=== PATIENT | female | born 1995 | race Caucasian/White ===

== ENCOUNTER 2017-01-01 10:21 | Emergency (ER) | payer OTHER ==
[2017-01-01 11:33] LABS: Appearance,Urine Clear (Clear); Bacteria,Urine Rare /hpf; Bilirubin,Urine Negative (Negative); Glucose,Urine (UA) Negative (Negative); Ketones,Urine Negative (Negative); Leukocyte Esterase,Urine Negative (Negative); Mucus,Urine Rare /hpf; Nitrite,Urine Negative (Negative); PH, Urine 5.5 (5.0-8.0); Particle Count 4664; Protein,Urine Trace (Negative); RBC,Urine 1 /hpf (0-5); Specific Gravity,Urine 1.019 (1.001-1.035); Squamous Epithelial Cell,Urine 2 /hpf (0-4); UA Billing (MACRO vs. MICRO) MICRO; Urobilinogen,Urine <2.0 mg/dL (<2.0); WBC,Urine 4 /hpf (0-5)
--- NOTE | 2017-01-01 11:57 | ED ---
Female Urogenital HPI - General Chief complaint: Vaginal Bleeding Stated complaint: bleeding, Time Seen by Provider: 01/01/17 10:39 Source: patient, RN notes reviewed Mode of arrival: ambulatory Limitations: no limitations - History of Present Illness Initial comments: Patient is a 21-year-old female presents emergency room for evaluation of vaginal bleeding. Patient states she is about 5 weeks . Patient states last menstrual cycle was November 30. Patient states that the test about a week ago and was positive. Patient states she has yet followed up with her [employer] regarding this . Patient states she has to previous full- term and one miscarriage. Patient states she began with light bleeding and small clots this morning. Patient denies any abdominal pain or cramping. Patient states the bleeding increases she called her [employer]. Patient states she was advised to come to the emergency room. Patient denies headache or dizziness. Patient denies chest pain shortness of breath. Patient denies nausea or vomiting. Patient denies pain or burning during urination, trouble urinating or blood in urine. Patient denies history of STDs. Patient denies any bowel vaginal discharge or vaginal discomfort. Last Menstrual Period: 11/30/16 - Related Data Home Medications Medication Instructions Recorded Confirmed No Known Home Medications [No 05/30/16 01/01/17 Known Home Medications] Allergies Allergy/AdvReac Type Severity Reaction Status Date / Time No Known Allergies Allergy Verified 01/01/17 11:04 Review of Systems ROS Statement: Those systems with pertinent positive or pertinent negative responses have been documented in the HPI. ROS Other: All systems not noted in ROS Statement are negative. Past Medical History Past Medical History: No Reported History Additional Past Medical History / Comment(s): Herpes History of Any Multi-Drug Resistant Organisms: MRSA Date of last positivie culture/infection: 11/14/15 MDRO Source:: groin Past Surgical History: No Surgical Hx Reported Past Anesthesia/Blood Transfusion Reactions: No Reported Reaction Past Psychological History: Anxiety, Depression Smoking Status: Current every day smoker Past Alcohol Use History: None Reported Past Drug Use History: Marijuana - Past Family History Father Family Medical History: No Reported History General Exam - General Exam Comments Initial Comments: Sitting in exam room, no acute distress. Limitations: no limitations General appearance: alert, in no apparent distress Head exam: Present: atraumatic, normocephalic, normal inspection Eye exam: Present: normal appearance ENT exam: Present: normal exam Neck exam: Present: normal inspection Respiratory exam: Present: normal lung sounds bilaterally. Absent: respiratory distress Cardiovascular Exam: Present: regular rate, normal rhythm, normal heart sounds GI/Abdominal exam: Present: soft, normal bowel sounds. Absent: distended, tenderness, guarding, rebound, rigid External exam: Present: normal external exam Speculum exam: Present: vaginal bleeding By manual exam: Present: normal by manual exam Extremities exam: Present: normal inspection Back exam: Present: normal inspection Neurological exam: Present: alert, oriented X3, CN II-XII intact, normal gait Psychiatric exam: Present: normal affect, normal mood Skin exam: Present: warm, dry, intact, normal color. Absent: rash Course Vital Signs 01/01/17 01/01/17 10:23 13:50 Temperature 97.8 F 98.7 F Pulse Rate 74 53 L Respiratory 16 15 Rate Blood Pressure 112/66 108/55 O2 Sat by Pulse 100 98 Oximetry Medical Decision Making - Medical Decision Making Patient is a 21 year old female presents to emergency room for evaluation of vaginal bleeding. ultrasound showed no gestational evidence at this time and short-term follow-up with serial beta hCGs recommended. quantitative serum was only 15.1. Blood type O positive. Patient will be sent home with hCG follow-up in 48 hours. Patient states she understands everything that was discussed with her. Return parameters discussed. Case discussed with Dr. Mcnamara. - Lab Data Lab Results 01/01/17 01/01/17 01/01/17 Range/Units 11:10 11:17 11:17 HCG, Quant 15.1 mIU/mL Urine Color Yellow Urine Appearance Clear (Clear) Urine pH 5.5 (5.0-8.0) Ur Specific [place] 1.019 (1.001-1.035) Urine Protein Trace H (Negative) Urine Glucose (UA) Negative (Negative) Urine Ketones Negative (Negative) Urine Blood Moderate H (Negative) Urine Nitrite Negative (Negative) Urine Bilirubin Negative (Negative) Urine Urobilinogen <2.0 (<2.0) mg/dL Ur Leukocyte Esterase Negative (Negative) Urine RBC 1 (0-5) /hpf Urine WBC 4 (0-5) /hpf Ur Squamous Epith Cells 2 (0-4) /hpf Urine Bacteria Rare H (None) /hpf Urine Mucus Rare H (None) /hpf Blood Type O Positive Blood Type Recheck No - Radiology Data Radiology results: report reviewed, image reviewed Disposition Clinical Impression: Threatened Disposition: HOME SELF-CARE Condition: Good Instructions: Threatened Miscarriage (ED) Additional Instructions: Refrain from heavy lifting or sexual intercourse for the next 24-48 hours. Please follow-up with [employer]. Take Tylenol as needed for discomfort. If any new symptom arises or symptoms worsen, return to ER as soon as possible. Referrals: Milagro Goldman MD [Primary Care Provider] - 1-2 days Haris Cox DO [Doctor of Osteopathic Medicine] - 1-2 days Time of Disposition: 13:45
--- NOTE | 2017-01-01 13:05 | US ---
EXAMINATION TYPE: US OB <= 14 wk fetus DATE OF EXAM: 01/01/2017 COMPARISON: NONE CLINICAL HISTORY: Pain. Vaginal bleeding EXAM PERFORMED: Transabdominal (TA) EXAM MEASUREMENTS: GESTATIONAL AGE / DATING Physician Established: not established Dates by LMP: (4 weeks/4 days) EDC: 09/06/17 Dates by First Scan: no prior Dates by Current Scan for: no evidence of IUP at this time MATERNAL ANATOMY Uterus: 7.9 x 5.4 x 5.9cm Right Ovary: 2.9 x 1.3 x 2.1cm Left Ovary: 2.8 x 1.5 x 2.1cm Post CDS / Adnexa: wnl Presence of free fluid: no GESTATION / SURVEY IUP: No IUP seen at this time Date of LMP: 11/30/16 Beta HcG (if available): 15.1 No evidence of IUP at this time IMPRESSION: WE HAVE NOT IDENTIFIED INTRAUTERINE OR EXTRAUTERINE GESTATION. SHORT-TERM FOLLOW-UP +/- 0 BETA HCGS W [facility] BE SUGGESTED.
[2017-01-01 13:52] VITALS: BP 108/55; PULSE 53; RESP 15; TEMP 98.7
== END 2017-01-01 14:00 | disposition home or self-care (01) ==
LOC: EC 10:21
DX: O20.0 Threatened abortion (principal); O99.331 Smoking (tobacco) complicating pregnancy, first trimester; F17.200 Nicotine dependence, unspecified, uncomplicated; Z3A.01 Less than 8 weeks gestation of pregnancy
CPT/HCPCS: 36415; 76801; 81001; 84702; 86900; 86901; 99284

== ENCOUNTER → 2017-01-04 | Outpatient (CLI) | payer OTHER | END | disposition home or self-care (01) | LOC: LABWHC1 13:08 | PROVIDERS: ATTEND Physician Assistant | DX: O20.0 Threatened abortion (principal); Z3A.00 Weeks of gestation of pregnancy not specified | CPT/HCPCS: 36415; 84702 ==

== ENCOUNTER 2017-02-21 13:10 | Emergency (ER) | payer OTHER ==
[2017-02-21 13:54] VITALS: RESP 18
[2017-02-21] MEDS ORDERED: ACETAMINOPHEN TAB 325 MG TAB PO STA (14:25)
[2017-02-21] MEDS ORDERED: METOCLOPRAMIDE 5 MG/ML 2 ML VIAL IVP STA (14:25)
[2017-02-21] MEDS ORDERED: SODIUM CHLORIDE 0.9% 1,000 ML IV ONE (14:25)
[2017-02-21] MEDS ORDERED: diphenhydrAMINE 50 MG/ML 1 ML VIAL IVP STA (14:25)
--- NOTE | 2017-02-21 15:02 | ED ---
Headache HPI - General Chief Complaint: Headache Stated Complaint: Migraine,numbness in finger tips/mouth Mode of arrival: wheelchair Limitations: no limitations - History of Present Illness Initial Comments: 21 yo female at 8 wks gestation with pmh of migraines presenting for evaluation of headache. She states her headache started 2 hours ago and is consistent with previous migraines starting with spotted vision, nausea and vomiting, left-sided headache without radiation, and some mildly slurred speech. She also states some decreased sensation to her left arm and lips although this is also consistent with previous presentations. She took some Tylenol prior to coming in without any relief. There is associated light sensitivity. She states she has a neuro appt on 02/28 with unknown neurologist. Denies any change in PATE from previous migraines. Previous visits were treated successfully with toradol, reglan, and benadryl. - Related Data Home Medications Medication Instructions Recorded Confirmed Acetaminophen Tab [Tylenol Tab] 1,000 mg PO Q6HR PRN 02/21/17 02/21/17 Previous Rx's Medication Instructions Recorded Nitrofurantoin Monohyd/M-Cryst 100 mg PO Q12HR #14 cap 02/21/17 [Macrobid] Allergies Allergy/AdvReac Type Severity Reaction Status Date / Time No Known Allergies Allergy Verified 02/21/17 14:00 Review of Systems ROS Statement: Those systems with pertinent positive or pertinent negative responses have been documented in the HPI. ROS Other: All systems not noted in ROS Statement are negative. Constitutional: Denies: fever, chills Eyes: Reports: vision change. Denies: eye pain ENT: Denies: ear pain, throat pain Respiratory: Denies: cough, dyspnea Cardiovascular: Denies: chest pain, palpitations Endocrine: Denies: fatigue, polydipsia Gastrointestinal: Reports: nausea, vomiting. Denies: abdominal pain Genitourinary: Denies: urgency, dysuria Musculoskeletal: Denies: back pain, arthralgia Skin: Denies: rash, lesions Neurological: Reports: headache, paresthesias. Denies: weakness Psychiatric: Denies: anxiety, depression Hematological/Lymphatic: Denies: easy bleeding, easy bruising Past Medical History Past Medical History: No Reported History Additional Past Medical History / Comment(s): Herpes History of Any Multi-Drug Resistant Organisms: MRSA Date of last positivie culture/infection: 11/14/15 MDRO Source:: groin Past Surgical History: No Surgical Hx Reported Past Anesthesia/Blood Transfusion Reactions: No Reported Reaction Past Psychological History: Anxiety, Depression Smoking Status: Current every day smoker Past Alcohol Use History: None Reported Past Drug Use History: Marijuana - Past Family History Father Family Medical History: No Reported History General Exam Limitations: no limitations General appearance: alert, in no apparent distress Head exam: Present: atraumatic, normocephalic, normal inspection Eye exam: Present: normal appearance, PERRL, EOMI. Absent: scleral icterus, conjunctival injection, periorbital swelling ENT exam: Present: normal exam, mucous membranes moist Neck exam: Present: normal inspection. Absent: tenderness, meningismus, lymphadenopathy Respiratory exam: Present: normal lung sounds bilaterally. Absent: respiratory distress, wheezes, rales, rhonchi, stridor Cardiovascular Exam: Present: regular rate, normal rhythm, normal heart sounds. Absent: systolic murmur, diastolic murmur, rubs, gallop, clicks GI/Abdominal exam: Present: soft, normal bowel sounds. Absent: distended, tenderness, guarding, rebound, rigid Rectal exam: Present: deferred Extremities exam: Present: normal inspection, full ROM, normal capillary refill. Absent: tenderness, pedal edema, joint swelling, calf tenderness Back exam: Present: normal inspection Neurological exam: Present: alert, oriented X3, CN II-XII intact Psychiatric exam: Present: normal affect, normal mood Skin exam: Present: warm, dry, intact, normal color. Absent: rash Course Vital Signs 02/21/17 02/21/17 13:48 15:27 Temperature 97.8 F 99.0 F Pulse Rate 77 105 H Respiratory 18 18 Rate Blood Pressure 109/61 118/59 O2 Sat by Pulse 100 99 Oximetry Medical Decision Making - Lab Data Lab Results 02/21/17 02/21/17 Range/Units 14:50 14:50 Urine Color Yellow Urine Appearance Clear (Clear) Urine pH 6.5 (5.0-8.0) Ur Specific [place] 1.009 (1.001-1.035) Urine Protein Negative (Negative) Urine Glucose (UA) Negative (Negative) Urine Ketones Trace H (Negative) Urine Blood Negative (Negative) Urine Nitrite Negative (Negative) Urine Bilirubin Negative (Negative) Urine Urobilinogen <2.0 (<2.0) mg/dL Ur Leukocyte Esterase Small H (Negative) Urine WBC 11 H (0-5) /hpf Ur Squamous Epith Cells 3 (0-4) /hpf Amorphous Sediment Rare H (None) /hpf Urine Bacteria Rare H (None) /hpf Urine Mucus Moderate H (None) /hpf Urine HCG, Qual Detected (Not Detectd) Disposition Clinical Impression: Headache Disposition: HOME SELF-CARE Condition: Stable Instructions: Acute Headache (ED) Additional Instructions: Please use medication as discussed. Please follow up with family doctor if symptoms have not improved over the next two days. Please return to the emergency room if your symptoms increase or worsen or for any other concerns. Prescriptions: Nitrofurantoin Monohyd/M-Cryst [Macrobid] 100 mg PO Q12HR #14 cap Referrals: Milagro Goldman MD [Primary Care Provider] - 1-2 days Time of Disposition: 16:06
[2017-02-21 15:11] LABS: Amorphous Sediment,Urine Rare /hpf; Appearance,Urine Clear (Clear); Bacteria,Urine Rare /hpf; Bilirubin,Urine Negative (Negative); Glucose,Urine (UA) Negative (Negative); Ketones,Urine Trace (Negative); Leukocyte Esterase,Urine Small (Negative); Mucus,Urine Moderate /hpf; Nitrite,Urine Negative (Negative); PH, Urine 6.5 (5.0-8.0); Particle Count 3694; Protein,Urine Negative (Negative); Specific Gravity,Urine 1.009 (1.001-1.035); Squamous Epithelial Cell,Urine 3 /hpf (0-4); UA Billing (MACRO vs. MICRO) MICRO; Urobilinogen,Urine <2.0 mg/dL (<2.0); WBC,Urine 11 /hpf (0-5)
[2017-02-21 16:21] VITALS: BP 99/51; PULSE 88; TEMP 98.4
== END 2017-02-21 16:20 | disposition home or self-care (01) ==
LOC: EC 13:10
DX: O99.89 Other specified diseases and conditions complicating pregnancy, childbirth and the puerperium (principal); R51 Headache; H57.8 Other specified disorders of eye and adnexa; R47.81 Slurred speech; O21.9 Vomiting of pregnancy, unspecified; O99.331 Smoking (tobacco) complicating pregnancy, first trimester; F17.200 Nicotine dependence, unspecified, uncomplicated; Z3A.08 8 weeks gestation of pregnancy
CPT/HCPCS: 81001; 81025; 99283; 96374; 96375; 96361 ×2; J1200; J2765

== ENCOUNTER 2017-03-14 16:40 | Emergency (ER) | payer OTHER ==
[2017-03-14] MEDS ORDERED: ACETAMINOPHEN TAB 500 MG TAB PO STA (16:56)
[2017-03-14] MEDS ORDERED: SODIUM CHLORIDE 0.9% 1,000 ML IV ONE (16:56)
[2017-03-14] MEDS ORDERED: ONDANSETRON 4 MG/2 ML VIAL IVP STA (16:56)
--- NOTE | 2017-03-14 16:59 | ED ---
General Adult HPI - General Chief complaint: Fever Stated complaint: 10 weeks /Vomiting/Fever Time Seen by Provider: 03/14/17 16:40 Source: patient, RN notes reviewed Mode of arrival: ambulatory Limitations: no limitations - History of Present Illness Initial comments: This is a 21-year-old female who presents to the emergency department with a past medical history significant for being and she states about 10 weeks. Patient comes in today because she's had a fever last couple of days and she's also had a cough. Patient denies any sputum production. Patient denies any shortness of breath or difficulty breathing. Patient states she's also had quite a bit of vomiting as well. Patient denies any abdominal pain patient denies any diarrhea. Patient states she has no dysuria hematuria urinary frequency. Patient denies any skin rashes lesions or any areas of erythema. Patient denies headache patient denies numbness weakness. Patient states she has not been able eat or drink anything over the last couple of days because of her vomiting. Patient denies any pelvic cramping or vaginal bleeding. - Related Data Home Medications Medication Instructions Recorded Confirmed Hun-Ejtt-Toxuh Acid 1 cap PO DAILY 03/14/17 03/14/17 [-U Capsule (formulary)] Previous Rx's Medication Instructions Recorded Azithromycin [Zithromax Tri-Angel] 500 mg PO DAILY #3 tab 03/14/17 Ondansetron [Zofran] 4 mg PO Q6H PRN #10 tab 03/14/17 Allergies Allergy/AdvReac Type Severity Reaction Status Date / Time No Known Allergies Allergy Verified 03/14/17 16:51 Review of Systems ROS Statement: Those systems with pertinent positive or pertinent negative responses have been documented in the HPI. ROS Other: All systems not noted in ROS Statement are negative. Past Medical History Past Medical History: No Reported History Additional Past Medical History / Comment(s): Herpes History of Any Multi-Drug Resistant Organisms: MRSA Date of last positivie culture/infection: 11/14/15 MDRO Source:: groin Past Surgical History: No Surgical Hx Reported Past Anesthesia/Blood Transfusion Reactions: No Reported Reaction Past Psychological History: Anxiety, Depression Smoking Status: Current every day smoker Past Alcohol Use History: None Reported Past Drug Use History: Marijuana - Past Family History Father Family Medical History: No Reported History General Exam - General Exam Comments Initial Comments: GENERAL: Patient is well-developed and well-nourished. Patient is nontoxic and well- hydrated and is in mild distress. ENT: Neck is soft and supple. No significant lymphadenopathy is noted. Oropharynx is clear. Moist mucous membranes. Neck has full range of motion without eliciting any pain. EYES: The sclera were anicteric and conjunctiva were pink and moist. Extraocular movements were intact and pupils were equal round and reactive to light. Eyelids were unremarkable. PULMONARY: Unlabored respirations. Good breath sounds bilaterally. No audible rales rhonchi or wheezing was noted. CARDIOVASCULAR: There is a regular rate and rhythm without any murmurs gallops or rubs. ABDOMEN: Soft and nontender with normal bowel sounds. No palpable organomegaly was noted. There is no palpable pulsatile mass. SKIN: Skin is clear with no lesions or rashes and otherwise unremarkable. NEUROLOGIC: Patient is alert and oriented x3. Cranial nerves II through XII are grossly intact. Motor and sensory are also intact. Normal speech, volume and content. Symmetrical smile. MUSCULOSKELETAL: Normal extremities with adequate strength and full range of motion. LYMPHATICS: No significant lymphadenopathy is noted PSYCHIATRIC: Normal psychiatric evaluation. Limitations: no limitations Course Vital Signs 03/14/17 03/14/17 16:41 18:31 Temperature 101.0 F H 99.7 F H Pulse Rate 94 Respiratory 20 Rate Blood Pressure 111/67 O2 Sat by Pulse 99 Oximetry Medical Decision Making - Medical Decision Making I went back in and reevaluated the patient and the patient stated she felt considerably better. I gave the patient a gram of Rocephin emergency department for bronchitis. I will send the patient home with Zithromax. I also sent the patient home with Zofran. - Lab Data Result diagrams: 03/14/17 17:30 03/14/17 17:30 Lab Results 03/14/17 03/14/17 03/14/17 Range/Units 17:30 17:30 17:30 WBC 4.8 (3.8-10.6) k/uL RBC 4.59 (3.80-5.40) m/uL Hgb 13.9 (11.4-16.0) gm/dL Hct 38.5 (34.0-46.0) % MCV 83.9 (80.0-100.0) fL MCH 30.2 (25.0-35.0) pg MCHC 36.0 (31.0-37.0) g/dL RDW 13.9 (11.5-15.5) % Plt Count 137 L (150-450) k/uL Neutrophils % 75 % Lymphocytes % 15 % Monocytes % 7 % Eosinophils % 0 % Basophils % 0 % Neutrophils # 3.6 (1.3-7.7) k/uL Lymphocytes # 0.7 L (1.0-4.8) k/uL Monocytes # 0.3 (0-1.0) k/uL Eosinophils # 0.0 (0-0.7) k/uL Basophils # 0.0 (0-0.2) k/uL Sodium 137 (137-145) mmol/L Potassium 3.2 L (3.5-5.1) mmol/L Chloride 100 (98-107) mmol/L Carbon Dioxide 24 (22-30) mmol/L Anion Gap 13 mmol/L BUN 7 (7-17) mg/dL Creatinine 0.40 L (0.52-1.04) mg/dL Est GFR (MDRD) Af Amer >60 (>60 ml/min/1.73 sqM) Est GFR (MDRD) Non-Af >60 (>60 ml/min/1.73 sqM) Glucose 86 (74-99) mg/dL Plasma Lactic Acid Дмитрий (0.7-2.0) mmol/L Calcium 8.8 (8.4-10.2) mg/dL Total Bilirubin 0.2 (0.2-1.3) mg/dL AST 31 (14-36) U/L ALT 33 (9-52) U/L Alkaline Phosphatase 71 (38-126) U/L Total Protein 6.7 (6.3-8.2) g/dL Albumin 4.1 (3.5-5.0) g/dL Urine Color Dark Yellow Urine Appearance Cloudy H (Clear) Urine pH 6.0 (5.0-8.0) Ur Specific [place] 1.023 (1.001-1.035) Urine Protein Trace H (Negative) Urine Glucose (UA) Negative (Negative) Urine Ketones 3+ H (Negative) Urine Blood Negative (Negative) Urine Nitrite Negative (Negative) Urine Bilirubin Negative (Negative) Urine Urobilinogen 2.0 (<2.0) mg/dL Ur Leukocyte Esterase Moderate H (Negative) Urine RBC 2 (0-5) /hpf Urine WBC 54 H (0-5) /hpf Ur Squamous Epith Cells 25 H (0-4) /hpf Amorphous Sediment Occasional H (None) /hpf Hyaline Casts 4 H (0-2) /lpf Urine Mucus Moderate H (None) /hpf 03/14/17 Range/Units 17:30 WBC (3.8-10.6) k/uL RBC (3.80-5.40) m/uL Hgb (11.4-16.0) gm/dL Hct (34.0-46.0) % MCV (80.0-100.0) fL MCH (25.0-35.0) pg MCHC (31.0-37.0) g/dL RDW (11.5-15.5) % Plt Count (150-450) k/uL Neutrophils % % Lymphocytes % % Monocytes % % Eosinophils % % Basophils % % Neutrophils # (1.3-7.7) k/uL Lymphocytes # (1.0-4.8) k/uL Monocytes # (0-1.0) k/uL Eosinophils # (0-0.7) k/uL Basophils # (0-0.2) k/uL Sodium (137-145) mmol/L Potassium (3.5-5.1) mmol/L Chloride (98-107) mmol/L Carbon Dioxide (22-30) mmol/L Anion Gap mmol/L BUN (7-17) mg/dL Creatinine (0.52-1.04) mg/dL Est GFR (MDRD) Af Amer (>60 ml/min/1.73 sqM) Est GFR (MDRD) Non-Af (>60 ml/min/1.73 sqM) Glucose (74-99) mg/dL Plasma Lactic Acid Дмитрий 0.7 (0.7-2.0) mmol/L Calcium (8.4-10.2) mg/dL Total Bilirubin (0.2-1.3) mg/dL AST (14-36) U/L ALT (9-52) U/L Alkaline Phosphatase (38-126) U/L Total Protein (6.3-8.2) g/dL Albumin (3.5-5.0) g/dL Urine Color Urine Appearance (Clear) Urine pH (5.0-8.0) Ur Specific [place] (1.001-1.035) Urine Protein (Negative) Urine Glucose (UA) (Negative) Urine Ketones (Negative) Urine Blood (Negative) Urine Nitrite (Negative) Urine Bilirubin (Negative) Urine Urobilinogen (<2.0) mg/dL Ur Leukocyte Esterase (Negative) Urine RBC (0-5) /hpf Urine WBC (0-5) /hpf Ur Squamous Epith Cells (0-4) /hpf Amorphous Sediment (None) /hpf Hyaline Casts (0-2) /lpf Urine Mucus (None) /hpf Disposition Clinical Impression: Bronchitis, acute, Acute vomiting Disposition: HOME SELF-CARE Condition: Good Instructions: Acute Bronchitis (ED) Prescriptions: Azithromycin [Zithromax Tri-Angel] 500 mg PO DAILY #3 tab Ondansetron [Zofran] 4 mg PO Q6H PRN #10 tab PRN Reason: Nausea And Vomiting Referrals: Milagro Goldman MD [Primary Care Provider] - 1-2 days Time of Disposition: 18:58
[2017-03-14 17:49] LABS: Basophils % (A) 0 %; CH 29.1; CHCM 34.8; Eosinophils % (A) 0 %; HCT 38.5 % (34.0-46.0); HDW 2.49; HGB 13.9 gm/dL (11.4-16.0); Luc # (Auto) 0.12; Luc % (Auto) 2; Lymphocytes # (A) 0.7 k/uL (1.0-4.8); Lymphocytes % (A) 15 %; MCH 30.2 pg (25.0-35.0); MCV 83.9 fL (80.0-100.0); Mean Platelet Volume 9.2; Monocytes # (A) 0.3 k/uL (0-1.0); Monocytes % (A) 7 %; Neutrophils # (A) 3.6 k/uL (1.3-7.7); Neutrophils % (A) 75 %; RBC 4.59 m/uL (3.80-5.40); RDW 13.9 % (11.5-15.5); WBC 4.8 k/uL (3.8-10.6); WBC (Perox) 4.58
[2017-03-14 17:58] LABS: Amorphous Sediment,Urine Occasional /hpf; Appearance,Urine Cloudy (Clear); Bilirubin,Urine Negative (Negative); Glucose,Urine (UA) Negative (Negative); Ketones,Urine 3+ (Negative); Leukocyte Esterase,Urine Moderate (Negative); Mucus,Urine Moderate /hpf; Nitrite,Urine Negative (Negative); Particle Count 12292; Protein,Urine Trace (Negative); RBC,Urine 2 /hpf (0-5); Specific Gravity,Urine 1.023 (1.001-1.035); Squamous Epithelial Cell,Urine 25 /hpf (0-4); UA Billing (MACRO vs. MICRO) MICRO; WBC,Urine 54 /hpf (0-5)
[2017-03-14 18:10] LABS: ALT 33 U/L (9-52); AST 31 U/L (14-36); Alkaline Phosphatase 71 U/L (38-126); Anion Gap 13 mmol/L; Blood Urea Nitrogen 7 mg/dL (7-17); Calcium 8.8 mg/dL (8.4-10.2); Carbon Dioxide 24 mmol/L (22-30); Chloride 100 mmol/L (98-107); Glucose 86 mg/dL (74-99); Non-African American GFR(MDRD) >60 (>60 ml/min/1.73 sqM); Potassium 3.2 mmol/L (3.5-5.1); Sodium 137 mmol/L (137-145); Total Bilirubin 0.2 mg/dL (0.2-1.3); Total Protein 6.7 g/dL (6.3-8.2)
[2017-03-14 18:31] VITALS: TEMP 99.7
[2017-03-14 19:39] VITALS: BP 106/52; PULSE 88; RESP 16
== END 2017-03-14 19:40 | disposition home or self-care (01) ==
LOC: EC 16:40
DX: O99.511 Diseases of the respiratory system complicating pregnancy, first trimester (principal); J20.9 Acute bronchitis, unspecified; O21.9 Vomiting of pregnancy, unspecified; O99.331 Smoking (tobacco) complicating pregnancy, first trimester; F17.200 Nicotine dependence, unspecified, uncomplicated; Z79.899 Other long term (current) drug therapy; Z3A.10 10 weeks gestation of pregnancy
CPT/HCPCS: 36415; 80053; 83605; 85025; 81001; 99283; 96365; 96375; 96361; J2405; J0696

== ENCOUNTER 2017-03-17 09:47 | Inpatient (IN) | payer OTHER ==
[2017-03-17] MEDS ORDERED: SODIUM CHLORIDE 0.9% 1,000 ML IV STA ×2 (10:10)
[2017-03-17] MEDS ORDERED: ACETAMINOPHEN IV (For NPO) 1,000 MG in SALINE 100 100ML.BAG IVPB STA (10:10)
[2017-03-17 10:39] LABS: Basophils % (A) 0 %; CH 29.1; CHCM 35.6; Eosinophils % (A) 1 %; HCT 37.7 % (34.0-46.0); HDW 2.66; HGB 13.4 gm/dL (11.4-16.0); Luc # (Auto) 0.06; Luc % (Auto) 2; Lymphocytes # (A) 0.6 k/uL (1.0-4.8); Lymphocytes % (A) 20 %; MCH 29.2 pg (25.0-35.0); MCHC 35.5 g/dL (31.0-37.0); MCV 82.2 fL (80.0-100.0); Mean Platelet Volume 8.7; Monocytes # (A) 0.1 k/uL (0-1.0); Monocytes % (A) 4 %; Neutrophils # (A) 2.4 k/uL (1.3-7.7); Neutrophils % (A) 74 %; RBC 4.59 m/uL (3.80-5.40); RDW 13.7 % (11.5-15.5); WBC 3.2 k/uL (3.8-10.6); WBC (Perox) 3.24
[2017-03-17 10:47] LABS: ALT 37 U/L (9-52); AST 38 U/L (14-36); Alkaline Phosphatase 69 U/L (38-126); Anion Gap 13 mmol/L; Blood Urea Nitrogen 5 mg/dL (7-17); Calcium 8.5 mg/dL (8.4-10.2); Carbon Dioxide 19 mmol/L (22-30); Chloride 104 mmol/L (98-107); Glucose 85 mg/dL (74-99); Non-African American GFR(MDRD) >60 (>60 ml/min/1.73 sqM); Sodium 136 mmol/L (137-145); Total Bilirubin 0.4 mg/dL (0.2-1.3); Total Protein 6.2 g/dL (6.3-8.2)
[2017-03-17 10:52] LABS: Potassium 2.9 mmol/L (3.5-5.1)
[2017-03-17 10:58] LABS: Appearance,Urine Cloudy (Clear); Bilirubin,Urine Negative (Negative); Glucose,Urine (UA) Negative (Negative); Ketones,Urine 4+ (Negative); Leukocyte Esterase,Urine Negative (Negative); Mucus,Urine Few /hpf; Nitrite,Urine Negative (Negative); Particle Count 5767; Protein,Urine 1+ (Negative); Specific Gravity,Urine 1.023 (1.001-1.035); Squamous Epithelial Cell,Urine 6 /hpf (0-4); UA Billing (MACRO vs. MICRO) MICRO; WBC,Urine 6 /hpf (0-5)
[2017-03-17] MEDS ORDERED: METOCLOPRAMIDE 5 MG/ML 2 ML VIAL IVP STA (11:15)
--- NOTE | 2017-03-17 11:17 | XR ---
EXAMINATION TYPE: XR chest 2V DATE OF EXAM: 03/17/2017 COMPARISON: 03/20/2015 HISTORY: 21-year-old female with cough and fever TECHNIQUE: PA and lateral views FINDINGS: The cardiomediastinal silhouette, aorta, and pulmonary vasculature are within normal limits. There is extensive consolidation and some nodularity at the basilar left lower lobe. No pleural effusion. IMPRESSION: Left lower lobe pneumonia.
--- NOTE | 2017-03-17 12:15 | ED ---
General Adult HPI - General Chief complaint: Nausea/Vomiting/Diarrhea Stated complaint: NVD Time Seen by Provider: 03/17/17 10:04 Source: patient, RN notes reviewed Mode of arrival: ambulatory Limitations: no limitations - Related Data Home Medications Medication Instructions Recorded Confirmed No Known Home Medications [No 03/17/17 03/17/17 Known Home Medications] Allergies Allergy/AdvReac Type Severity Reaction Status Date / Time No Known Allergies Allergy Verified 03/14/17 16:51 Review of Systems ROS Statement: Those systems with pertinent positive or pertinent negative responses have been documented in the HPI. ROS Other: All systems not noted in ROS Statement are negative. Past Medical History Past Medical History: No Reported History Additional Past Medical History / Comment(s): Herpes History of Any Multi-Drug Resistant Organisms: MRSA Date of last positivie culture/infection: 11/14/15 MDRO Source:: groin Past Surgical History: No Surgical Hx Reported Past Anesthesia/Blood Transfusion Reactions: No Reported Reaction Past Psychological History: Anxiety, Depression Smoking Status: Current every day smoker Past Alcohol Use History: None Reported Past Drug Use History: Marijuana - Past Family History Father Family Medical History: No Reported History General Exam Limitations: no limitations Course Vital Signs 03/17/17 09:50 Temperature 101.9 F H Pulse Rate 113 H Respiratory 17 Rate Blood Pressure 106/63 O2 Sat by Pulse 95 Oximetry Medical Decision Making - Medical Decision Making Case discussed in detail with attending physician Patient reexamined at this time shows no signs of distress resting comfortably. Chest x-ray does show a left-sided pneumonia. Patient started on antibiotics here in the emergency room of Rocephin will be continued on Rocephin and azithromycin. Patient ultrasound does show single IUP measuring 10 weeks 2 days. Recommend close follow-up for 2 cm. Gestational bleed. Heart rate of her limits of normal at 170 bpm. - Lab Data Result diagrams: 03/17/17 10:17 03/17/17 10:17 Lab Results 03/17/17 03/17/17 03/17/17 Range/Units 10:17 10:17 10:17 WBC 3.2 L (3.8-10.6) k/uL RBC 4.59 (3.80-5.40) m/uL Hgb 13.4 (11.4-16.0) gm/dL Hct 37.7 (34.0-46.0) % MCV 82.2 (80.0-100.0) fL MCH 29.2 (25.0-35.0) pg MCHC 35.5 (31.0-37.0) g/dL RDW 13.7 (11.5-15.5) % Plt Count 123 L (150-450) k/uL Neutrophils % 74 % Lymphocytes % 20 % Monocytes % 4 % Eosinophils % 1 % Basophils % 0 % Neutrophils # 2.4 (1.3-7.7) k/uL Lymphocytes # 0.6 L (1.0-4.8) k/uL Monocytes # 0.1 (0-1.0) k/uL Eosinophils # 0.0 (0-0.7) k/uL Basophils # 0.0 (0-0.2) k/uL Sodium 136 L (137-145) mmol/L Potassium 2.9 L* (3.5-5.1) mmol/L Chloride 104 (98-107) mmol/L Carbon Dioxide 19 L (22-30) mmol/L Anion Gap 13 mmol/L BUN 5 L (7-17) mg/dL Creatinine 0.30 L (0.52-1.04) mg/dL Est GFR (MDRD) Af Amer >60 (>60 ml/min/1.73 sqM) Est GFR (MDRD) Non-Af >60 (>60 ml/min/1.73 sqM) Glucose 85 (74-99) mg/dL Plasma Lactic Acid Дмитрий 0.7 (0.7-2.0) mmol/L Calcium 8.5 (8.4-10.2) mg/dL Total Bilirubin 0.4 (0.2-1.3) mg/dL AST 38 H (14-36) U/L ALT 37 (9-52) U/L Alkaline Phosphatase 69 (38-126) U/L Total Protein 6.2 L (6.3-8.2) g/dL Albumin 3.6 (3.5-5.0) g/dL Urine Color Urine Appearance (Clear) Urine pH (5.0-8.0) Ur Specific [place] (1.001-1.035) Urine Protein (Negative) Urine Glucose (UA) (Negative) Urine Ketones (Negative) Urine Blood (Negative) Urine Nitrite (Negative) Urine Bilirubin (Negative) Urine Urobilinogen (<2.0) mg/dL Ur Leukocyte Esterase (Negative) Urine WBC (0-5) /hpf Ur Squamous Epith Cells (0-4) /hpf Urine Mucus (None) /hpf 03/17/17 Range/Units 10:28 WBC (3.8-10.6) k/uL RBC (3.80-5.40) m/uL Hgb (11.4-16.0) gm/dL Hct (34.0-46.0) % MCV (80.0-100.0) fL MCH (25.0-35.0) pg MCHC (31.0-37.0) g/dL RDW (11.5-15.5) % Plt Count (150-450) k/uL Neutrophils % % Lymphocytes % % Monocytes % % Eosinophils % % Basophils % % Neutrophils # (1.3-7.7) k/uL Lymphocytes # (1.0-4.8) k/uL Monocytes # (0-1.0) k/uL Eosinophils # (0-0.7) k/uL Basophils # (0-0.2) k/uL Sodium (137-145) mmol/L Potassium (3.5-5.1) mmol/L Chloride (98-107) mmol/L Carbon Dioxide (22-30) mmol/L Anion Gap mmol/L BUN (7-17) mg/dL Creatinine (0.52-1.04) mg/dL Est GFR (MDRD) Af Amer (>60 ml/min/1.73 sqM) Est GFR (MDRD) Non-Af (>60 ml/min/1.73 sqM) Glucose (74-99) mg/dL Plasma Lactic Acid Дмитрий (0.7-2.0) mmol/L Calcium (8.4-10.2) mg/dL Total Bilirubin (0.2-1.3) mg/dL AST (14-36) U/L ALT (9-52) U/L Alkaline Phosphatase (38-126) U/L Total Protein (6.3-8.2) g/dL Albumin (3.5-5.0) g/dL Urine Color Yellow Urine Appearance Cloudy H (Clear) Urine pH 6.0 (5.0-8.0) Ur Specific [place] 1.023 (1.001-1.035) Urine Protein 1+ H (Negative) Urine Glucose (UA) Negative (Negative) Urine Ketones 4+ H (Negative) Urine Blood Negative (Negative) Urine Nitrite Negative (Negative) Urine Bilirubin Negative (Negative) Urine Urobilinogen 2.0 (<2.0) mg/dL Ur Leukocyte Esterase Negative (Negative) Urine WBC 6 H (0-5) /hpf Ur Squamous Epith Cells 6 H (0-4) /hpf Urine Mucus Few H (None) /hpf Disposition Clinical Impression: Community acquired pneumonia Disposition: ADMITTED IP TO THIS HOSP Condition: Good Referrals: Milagro Goldman MD [Primary Care Provider] - 1-2 days Time of Disposition: 12:56
[2017-03-17] MEDS: POTASSIUM CHLORIDE ER 20 MEQ TAB.ER PO STA ×2 (12:24→12:52)
--- NOTE | 2017-03-17 12:29 | US ---
EXAMINATION TYPE: US OB <= 14 wk fetus DATE OF EXAM: 03/17/2017 COMPARISON: 01/01/2017 CLINICAL HISTORY: 21-year-old female with Pain. Vomiting, nausea, fever, patient denies pain or vagin al bleeding Date of LMP: 01/01/17 Beta HcG (if available): unavailable EXAM PERFORMED: Transabdominal (TA) FINDINGS: EXAM MEASUREMENTS: GESTATIONAL AGE / DATING Physician Established: not established Dates by LMP: (10 weeks/5 days) EDC: 10/08/2017/ Dates by First Scan: No IUP seen at that time. Dates by Current Scan for: (11 weeks/0 days) EDC: 10/06/2017 MATERNAL ANATOMY Uterus: 10.2x 7.8 x 9.4cm Right Ovary: 2.4 x 1.2 x 1.7cm Left Ovary: 3.4 x 1.8 x 1.7cm Post CDS / Adnexa: wnl Presence of free fluid: no Presence of corpus luteal cyst: yes, left ovary = 1.6 x 1.4 x 1.3cm Presence of subchorionic bleed: yes, inferior to gestational sac = 2.1cm GESTATION / SURVEY CRL: 4.2cm (11 weeks/0 days) Yolk Sac (normal less than 6mm): 5.8mm, borderline large. Heart Rate: 170 bpm Rhythm: Normal IUP: Viable IUP Nuchal Translucency 10-14wks (normal less than 3mm): 2mm CROSSING SUPERVISOR NOTES: Single viable IUP 11wks/0days with RICHARD of 10/06/17. Mild subchorionic bleed infer ior to gestational sac. Corpus luteum left ovary. IMPRESSION: 1. Single live intrauterine with estimated gestational age of 10 weeks 5 days. Current ultr asound biometry is concordant (11 weeks 0 days) by crown-rump length. 2. The yolk sac is borderline enlarged, nearing 6 mm. However, this is of questionable clinical signi ficance as the gestation has moved beyond 10 weeks. Short interval follow-up can be considered. 3. Small 2 cm perigestational bleed. Also, heart rate is at the upper limits of normal (170 BPM). Aga in, short interval follow-up can be considered.
[2017-03-17] MEDS ORDERED: POTASSIUM BICARB-CITRIC ACID 25 MEQ TABLET.EFF PO STA (12:56)
[2017-03-17] MEDS ORDERED: NALOXONE 0.4 MG/ML 1 ML VIAL IV PRN (13:12)
[2017-03-17] MEDS ORDERED: AZITHROMYCIN 500 MG in SODIUM CHLORIDE 0.9% 250 ML IVPB STA (13:15)
[2017-03-17] MEDS ORDERED: ONDANSETRON 4 MG/2 ML VIAL IVP PRN (15:38)
--- NOTE | 2017-03-17 17:24 | P.OBCN ---
History of Present Illness Consult date: 03/17/17 Reason for consult: early problem Chief complaint: Pneumonia History of present illness: Patient is a 21-year-old female who is 11 weeks . She is known to my practice and I have treated her previously for her pregnancies. She called my office today as she was scheduled to have her initial OB visit today however she said that she had been coughing and had bad bronchitis and that she not be able to eat or drink anything for 4 days. I advised her that rather than come to my office she should go to the emergency room where it is been revealed that she actually has left lower lobe pneumonia. She started on antibiotics and will plan to follow her peripherally from a obstetrical standpoint as she is only 11 weeks. Ultrasound verified dates. Have started her on a vitamin. Otherwise at this time there is limited that I would change with her current regimen and will plan again to follow her peripherally and once she is discharged try and get her urgently and see me so we can begin her care 1 she is feeling better. Past Medical History Past Medical History: No Reported History Additional Past Medical History / Comment(s): Pt denies any past medical hx. History of Any Multi-Drug Resistant Organisms: MRSA Year Discovered:: 11/14/15 MDRO Source:: Gretel michaels Past Surgical History: No Surgical Hx Reported Past Anesthesia/Blood Transfusion Reactions: No Reported Reaction Past Psychological History: Anxiety, Depression Additional Psychological History / Comment(s): Pt states she resides with her 3 yr old child and her 9 month old baby. She states she is independent. Her [employer] driver's license is suspended due to unpain ticket at this time. Smoking Status: Current every day smoker Past Alcohol Use History: None Reported Additional Past Alcohol Use History / Comment(s): Pt started smoking in 2010 and is a half a pack a day smoker. Past Drug Use History: Marijuana Additional Drug Use History / Comment(s): Pt states she smokes 1 joint a day. - Past Family History Father Family Medical History: No Reported History Additional Family Medical History / Comment(s): Father is healthy. Mother Family Medical History: No Reported History Additional Family Medical History / Comment(s): Mother is healthy. Medications and Allergies Home Medications Medication Instructions Recorded Confirmed Type No Known Home Medications [No 03/17/17 03/17/17 History Known Home Medications] Allergies Allergy/AdvReac Type Severity Reaction Status Date / Time No Known Allergies Allergy Verified 03/14/17 16:51 Exam Osteopathic Statement: *. No significant issues noted on an osteopathic structural exam other than those noted in the History and Physical/Consult. - Vital Signs Vital signs: Vital Signs Temp Pulse Pulse Resp BP BP Pulse Ox 03/17/17 14:35 98.5 F 90 20 107/55 97 03/17/17 13:59 98.5 F 93 18 111/59 97 03/17/17 09:50 101.9 F H 113 H 17 106/63 95 Intake and Output 03/17/17 03/17/17 03/17/17 06:59 14:59 22:59 Other: Weight 49.895 kg Patient Weight 03/18/17 06:59 Weight 49.895 kg Results Result Diagrams: 03/17/17 10:17 03/17/17 10:17 Abnormal Lab Results - Last 24 Hours (Table) 03/17/17 03/17/17 03/17/17 Range/Units 10:17 10:17 10:28 WBC 3.2 L (3.8-10.6) k/uL Plt Count 123 L (150-450) k/uL Lymphocytes # 0.6 L (1.0-4.8) k/uL Sodium 136 L (137-145) mmol/L Potassium 2.9 L* (3.5-5.1) mmol/L Carbon Dioxide 19 L (22-30) mmol/L BUN 5 L (7-17) mg/dL Creatinine 0.30 L (0.52-1.04) mg/dL AST 38 H (14-36) U/L Total Protein 6.2 L (6.3-8.2) g/dL Urine Appearance Cloudy H (Clear) Urine Protein 1+ H (Negative) Urine Ketones 4+ H (Negative) Urine WBC 6 H (0-5) /hpf Ur Squamous Epith Cells 6 H (0-4) /hpf Urine Mucus Few H (None) /hpf Microbiology - Last 24 Hours (Table) 03/17/17 10:28 Urine Culture - Preliminary Urine,Clean Catch
[2017-03-17] MEDS: ACETAMINOPHEN TAB 325 MG TAB PO PRN ×2 (17:49→23:56)
[2017-03-17] MEDS: 0.9% NACL WITH KCL 40 MEQ/L 1,000 ML IV SCH (20:39)
--- NOTE | 2017-03-17 21:12 | HP ---
DATE OF SERVICE: 03/17/2017 CHIEF COMPLAINT: Shortness of breath, cough and sputum. HISTORY OF PRESENT ILLNESS: This 21-year-old woman with a past medical history of multiple medical problems, including anxiety, depression, MRSA, being followed by Dr. Goldman in the outpatient setting, is 11 weeks' . The patient's youngest child is about 9 months. Now patient is complaining of cough , sputum. Patient was diagnosed with pneumonia recently. Patient came to the ER and was given antibiotics apparently. But because of lack of improvement, patient came back. She was found to have left lower lob pneumonia and was admitted for further evaluation and treatment. There is no history of any fever , rigor, chills. No history of headache, loss of consciousness, seizures. PAST MEDICAL HISTORY: 1. History of MRSA. 2. History of anxiety, depression. Medications prior to admission include antibiotics; details unknown. ALLERGIES: NONE. FAMILY HISTORY: No history of heart disease or strokes in the family. SOCIAL HISTORY: History of THC. History of smoking. REVIEW OF SYSTEMS: ENT: No diminished hearing. No diminished vision. CARVIOVASCULAR SYSTEM: No angina, palpitations. RESPIRATORY SYSTEM: No cough, hemoptysis. GI: No nausea, vomiting. : No dysuria, retention. NERVOUS SYSTEM: No numbness, weakness. ALLERGY/IMMUNOLOGY: No asthma, hayfever. MUSCULOSKELETAL: As mentioned earlier. HEMATOLOGY/ONCOLOGY: No history of anemia. ENDOCRINE: No history of diabetes, hypothyroidism. CONSTITUTIONAL: As mentioned earlier. DERMATOLOGY: Negative. RHEUMATOLOGY: Negative. PSYCHIATRY: As mentioned earlier. PHYSICAL EXAM: Patient is alert and oriented x3. Pulse is 93, blood pressure 111 /59, respiration 18, temperature 98.4, pulse ox 97% on room air. The temperature was 101.9. HEENT: Conjunctivae normal. NECK: No jugular venous distention. CARDIOVASCULAR: S1, S2 muffled. Ejection systolic murmur present. RESPIRATORY: Breath sounds diminished at the bases. A few scattered rhonchi and crackles. ABDOMEN: Soft. Non-tender. No mass palpable. LEGS: No edema. No swelling. NERVOUS SYSTEM: Higher functions as mentioned earlier. Moves all 4 limbs. No focal motor or sensory deficit. LYMPHATICS: No lymph node palpable in neck, axillae or groin. SKIN: No ulcer, rash, bleeding. LABS: WBC 3.2, hemoglobin 13.4. Sodium 136, potassium 2.9. UA noted. ASSESSMENT: 1. Acute left lower lobe pneumonia with possible sepsis. 2. at 11 weeks. 3. History of recent bronchitis. 4. History of MRSA. 5. Mild leukopenia. 6. Thrombocytopenia. 7. History of nicotine dependence. 8. Hyponatremia. 9. Hypokalemia. RECOMMENDATIONS AND DISCUSSION: In this 21-year-old woman who presented with multiple complex medical issues, we will monitor the patient closely, continue the current medications, continue with symptomatic treatment, continue with the broad-spectrum IV antibiotics. I would also check legionella antigen as well as mycoplasma antibody. Prognosis guarded because of multiple complex medical issues. Further recommendations to follow. See orders for further details. MTDD
[2017-03-18 07:06] LABS: Basophils % (A) 0 %; CH 29.9; CHCM 34.7; Eosinophils % (A) 0 %; HCT 35.6 % (34.0-46.0); HDW 2.66; HGB 11.9 gm/dL (11.4-16.0); Luc # (Auto) 0.07; Luc % (Auto) 3; Lymphocytes # (A) 0.7 k/uL (1.0-4.8); Lymphocytes % (A) 27 %; MCHC 33.5 g/dL (31.0-37.0); MCV 86.7 fL (80.0-100.0); Mean Platelet Volume 9.6; Monocytes # (A) 0.1 k/uL (0-1.0); Monocytes % (A) 4 %; Neutrophils # (A) 1.7 k/uL (1.3-7.7); Neutrophils % (A) 67 %; RBC 4.11 m/uL (3.80-5.40); RDW 14.7 % (11.5-15.5); WBC 2.6 k/uL (3.8-10.6); WBC (Perox) 2.73
[2017-03-18] MEDS: ACETAMINOPHEN TAB 325 MG TAB PO PRN ×2 (07:13→23:57)
[2017-03-18 07:29] LABS: ALT 27 U/L (9-52); AST 32 U/L (14-36); Alkaline Phosphatase 56 U/L (38-126); Anion Gap 8 mmol/L; Blood Urea Nitrogen <2 mg/dL (7-17); Calcium 7.7 mg/dL (8.4-10.2); Carbon Dioxide 19 mmol/L (22-30); Chloride 108 mmol/L (98-107); Glucose 74 mg/dL (74-99); Non-African American GFR(MDRD) >60 (>60 ml/min/1.73 sqM); Potassium 3.3 mmol/L (3.5-5.1); Sodium 135 mmol/L (137-145); Total Bilirubin 0.3 mg/dL (0.2-1.3)
[2017-03-18] MEDS: 0.9% NACL WITH KCL 40 MEQ/L 1,000 ML IV SCH (09:08)
[2017-03-18 10:21] VITALS: BMI 18.3
[2017-03-18] MEDS ORDERED: ALBUTEROL NEBULIZED 2.5 MG/3 ML INHALATION PRN (10:49)
--- NOTE | 2017-03-18 10:57 | P.CNPUL ---
History of Present Illness Consult date: 03/18/17 Requesting physician: Kiran Bridges Reason for consult: dyspnea, abnormal CXR/CT Chief complaint: Shortness of breath, cough, congestion History of present illness: This is a very pleasant 21-year-old female patient who follows with Dr. Goldman as her primary care physician. She has a history of MRSA infection of the groin, anxiety/depression, chronic and ongoing tobacco dependence, daily marijuana use. She is currently 11 weeks . She has a 3-year-old child and a 9- month-old son at home. She had developed shortness of breath, cough and congestion. She had been initiated on a Z-Angel in the outpatient setting however her symptoms continued to progress and she was seen here in the emergency yesterday. She was found to have a left lower lobe pneumonia and was admitted. She is seen today in consultation on the pediatric floor. She is awake and alert in no acute distress. She does have a productive cough of yellow green sputum. Sputum sample is pending. Urine culture is pending. Urine drug screen is positive for THC. No leukocytosis. Lactic acid 0.7. She's had a T-max of 101.0. She is maintaining good O2 saturations in the mid 90s on room air. She's been hemodynamically stable. She is feeling slightly better today as compared to yesterday. She's been afebrile this morning. She's been initiated on ceftriaxone and azithromycin. Infectious disease is on the case. rn advanced is on the case as well. Review of Systems 14 point review of system was conducted. All negative other than as mentioned in HPI. Past Medical History Past Medical History: No Reported History Additional Past Medical History / Comment(s): Pt denies any past medical hx. History of Any Multi-Drug Resistant Organisms: MRSA Date of last positivie culture/infection: 11/14/15 MDRO Source:: R groin Past Surgical History: No Surgical Hx Reported Past Anesthesia/Blood Transfusion Reactions: No Reported Reaction Past Psychological History: Anxiety, Depression Additional Psychological History / Comment(s): Pt states she resides with her 3 yr old child and her 9 month old baby. She states she is independent. Her class [employer] driver's license is suspended due to unpain ticket at this time. Smoking Status: Current every day smoker Past Alcohol Use History: None Reported Additional Past Alcohol Use History / Comment(s): Pt started smoking in 2010 and is a half a pack a day smoker. Past Drug Use History: Marijuana Additional Drug Use History / Comment(s): Pt states she smokes 1 joint a day. - Past Family History Father Family Medical History: No Reported History Additional Family Medical History / Comment(s): Father is healthy. Mother Family Medical History: No Reported History Additional Family Medical History / Comment(s): Mother is healthy. Medications and Allergies Home Medications Medication Instructions Recorded Confirmed Type No Known Home Medications [No 03/17/17 03/17/17 History Known Home Medications] Allergies Allergy/AdvReac Type Severity Reaction Status Date / Time No Known Allergies Allergy Verified 03/14/17 16:51 Physical Exam Vitals: Vital Signs Temp Pulse Pulse Resp BP BP BP 03/18/17 08:33 97.8 F 84 16 101/52 03/18/17 07:17 98.5 F 03/18/17 01:30 98.1 F 03/17/17 23:58 101.0 F H 03/17/17 22:29 22 03/17/17 22:17 98.8 F 84 20 101/64 03/17/17 20:42 99.5 F 03/17/17 20:27 89 20 97/49 03/17/17 16:31 100.6 F H 87 20 101/57 03/17/17 14:35 98.5 F 90 20 107/55 03/17/17 13:59 98.5 F 93 18 111/59 Pulse Ox 03/18/17 08:33 96 03/18/17 07:17 03/18/17 01:30 03/17/17 23:58 03/17/17 22:29 03/17/17 22:17 96 03/17/17 20:42 03/17/17 20:27 96 03/17/17 16:31 97 03/17/17 14:35 97 03/17/17 13:59 97 Intake and Output 03/17/17 03/18/17 03/18/17 22:59 06:59 14:59 Intake Total 580 120 Balance 580 120 Intake: Oral 580 120 Other: # Voids 3 1 Weight 49.895 kg Patient Weight 03/19/17 06:59 Weight 49.895 kg GENERAL EXAM: Alert, active, comfortable in no apparent distress. HEAD: Normocephalic. EYES: Normal reaction of pupils, equal size. NOSE: Clear with pink turbinates. THROAT: No erythema or exudates. NECK: No masses, no JVD. CHEST: No chest wall deformity. LUNGS: Equal air entry with crackles in the left posterior base. CVS: S1 and S2 normal with no audible mumurs, regular rhythm. ABDOMEN: No hepatosplenomegaly, normal bowel sounds, no guarding or rigidity. SPINE: No scoliosis or deformity SKIN: No rashes CENTRAL NERVOUS SYSTEM: No focal deficits, tone is normal in all 4 extremities. Extremities: There is no significant peripheral edema. No clubbing, no cyanosis. Peripheral pulses are intact. Results - Laboratory Findings CBC and BMP: 03/18/17 06:25 03/18/17 06:25 Abnormal lab findings: Abnormal Labs 03/17/17 03/17/17 03/17/17 10:17 10:17 10:28 WBC 3.2 L Plt Count 123 L Lymphocytes # 0.6 L Sodium 136 L Potassium 2.9 L* Chloride Carbon Dioxide 19 L BUN 5 L Creatinine 0.30 L Calcium AST 38 H Total Protein 6.2 L Albumin Urine Appearance Cloudy H Urine Protein 1+ H Urine Ketones 4+ H Urine WBC 6 H Ur Squamous Epith Cells 6 H Urine Mucus Few H U Marijuana (THC) Screen 03/17/17 03/18/17 03/18/17 20:34 06:25 06:25 WBC 2.6 L Plt Count 114 L Lymphocytes # 0.7 L Sodium 135 L Potassium 3.3 L Chloride 108 H Carbon Dioxide 19 L BUN <2 L Creatinine 0.34 L Calcium 7.7 L AST Total Protein 5.0 L Albumin 2.8 L Urine Appearance Urine Protein Urine Ketones Urine WBC Ur Squamous Epith Cells Urine Mucus U Marijuana (THC) Screen Detected H - Diagnostic Findings Chest x-ray: image reviewed Assessment and Plan Plan: Impression: #1 Left lower lobe pneumonia suspect community-acquired. #2 History of MRSA infection in the right groin in 2016. #3 Chronic and ongoing tobacco dependence. #4 Chronic and ongoing marijuana use. #5 , 11 weeks per ultrasound. #6 History of anxiety/depression. #7 Hypokalemia, initial potassium 2.9 currently 3.3. Plan: The patient was seen and evaluated by Dr. Wright. Her chest x-ray and labs were reviewed. We'll continue with Rocephin and add azithromycin. We'll add albuterol as needed. She'll be given incentive spirometer and instructed regarding cough and deep breathing exercises. She is educated regarding the importance of complete smoking cessation including cigarettes and marijuana. We will continue to follow and make further recommendations based on her clinical status. Time with Patient: Greater than 30
[2017-03-18] MEDS: AZITHROMYCIN 500 MG in SODIUM CHLORIDE 0.9% 250 ML IVPB SCH (11:12)
[2017-03-18] MEDS ORDERED: PRENATAL VIT-IRON-FOLIC ACID 1 EACH CAP PO SCH (12:00)
--- NOTE | 2017-03-18 16:56 | CONS ---
DATE OF SERVICE: 03/18/2017 REASON FOR CONSULTATION: Pneumonia. HISTORY OF PRESENT ILLNESS: The patient is a 21-year-old female who is currently 14 weeks' . She presented to the ER with the chief complaint of shortness of breath, cough and fever. Patient said she has had a fever going on for about a week now. She did have a cough and brought up some whitish to yellow sputum but no hemoptysis. No significant chest pain. Patient says she was seen in the ER about 3 days ago. No x-ray was done, as she was , and she was diagnosed with bronchitis and given an antibiotic. She took it for 3 days; however, the patient's symptoms did not improve; hence she presented back to the [facility] ER, where the patient did have a chest x-ray showing left lower lobe pneumonia. The patient has been started on Rocephin and azithromycin. She has been admitted to the hospital. ID was consulted for further recommendations regarding antibiotic therapy. REVIEW OF SYSTEMS: CONSTITUTIONAL: Positive for weakness and a fever. EYES: No complaint. ENT: No complaint. RESPIRATORY: As per HPI. CARDIOVASCULAR: No complaint. GENITOURINARY: No complaint. GASTROINTESTINAL: No complaint. MUSCULOSKELETAL: No complaint. INTEGUMENTARY: No complaint. PSYCHOLOGIC: No complaint. ENDOCRINE: No complaint. NEUROLOGIC: No complaint. Her past medical history is significant for an MRSA infection of the right groin area; also positive for anxiety and depression. PAST SURGICAL HISTORY: No major surgery. SOCIAL HISTORY: Patient is currently an everyday smoker. Does admit marijuana use. No drinking. FAMILY HISTORY: No pertinent findings were noticed. ALLERGIES: NO KNOWN DRUG ALLERGIES. Medications currently include: 1. Tylenol. 2. Ventolin. 3. Azithromycin. 4. Rocephin. 5. Pre- multivitamin. 6. Narcan. 7. Zofran. On examination, blood pressure is 97/40 with a pulse of 73, temperature 98.7. T- max of 101. She is 97% on room air. General description is a young female lying in bed in no distress. No tachypnea or accessory muscle of respiration use. HEENT examination shows no pallor or scleral icterus. Oral mucous membrane is dry. NECK: Trachea is central. No thyromegaly. LUNGS: Unlabored breathing. Some coarse breath sounds at the left base. No wheeze. HEART: S1, S2. Regular rate and rhythm. ABDOMEN: Soft. No tenderness. No guarding or rigidity. EXTREMITIES: No edema of the feet. SKIN EXAMINATION: No rash or mass palpable. Neurologically patient is awake, alert, oriented x3. Mood and affect normal. LABS: Hemoglobin is 11.9, white count 2.6 with a BUN of 2, creatinine 0.34. Urine was negative. Chest x-ray showed left lower lobe pneumonia. DIAGNOSTIC IMPRESSION AND PLAN: Patient admitted to hospital with a fever of 101 degrees Fahrenheit with cough and congestion with left lower lobe pneumonia , likely community-acquired, failing outpatient oral Zithromax therapy. PLAN: 1. Obtain sputum for Gram stain and culture and sensitivity. 2. The patient will continue on Rocephin 1 gram p.o. daily. Discontinue Zithromax. 3. We will follow up on the clinical condition and culture to further adjust medication if needed. Thank you for this consultation. Will follow this patient along with you. [facility]
[2017-03-18 17:31] LABS: Hepatitis B Surface Ag Index 0.05
[2017-03-18 17:37] LABS: Hepatitis B Core IgM Index 0.06
[2017-03-18 17:48] LABS: Hepatitis C Virus IgG Ab Negative (Negative); Hepatitis C Virus IgG Index 0.02
--- NOTE | 2017-03-18 23:06 | PN ---
DATE OF SERVICE: 03/18/2017 This 21-year-old woman who was admitted with acute left lower lobe pneumonia is also 11 weeks' . The patient is on IV antibiotics. She is feeling slightly better. No chest pain. No palpitations. No fever. On exam, alert and oriented x3. Pulse is 73, blood pressure 97/40, respiration 18, temperature 98.7; T-max was 101. Pulse ox 97% on room air. HEENT: Conjunctivae normal. NECK: No jugular venous distention. CARDIOVASCULAR: S1, S2 muffled. RESPIRATORY: Breath sounds diminished at the bases. A few scattered rhonchi and crackles, especially in the left base. ABDOMEN: Soft. Non-tender. NERVOUS SYSTEM: No focal deficit. LABS: WBC 2.6. Platelets 114. Sodium 138, potassium 3.3 THC is positive. ASSESSMENT: 1. Acute left lower lobe pneumonia with possible sepsis. 2. at 11 weeks. 3. History of recent bronchitis. 4. History of MRSA. 5. Mild leukopenia. 6. Thrombocytopenia. 7. History of nicotine dependence. RECOMMENDATIONS AND DISCUSSION: I recommend to continue current medications, continue with symptomatic treatment. Otherwise, I would recommend continuing with the broad-spectrum IV antibiotics. I would also recommend a hepatitis panel. Further recommendations to follow. MTDD
[2017-03-19 05:56] LABS: Mycoplasma IgG Antibody (EIA) 1.26 INDEX (<=0.90); Mycoplasma IgM Antibody 0.46 INDEX (<=0.90)
[2017-03-19 06:24] LABS: Basophils % (A) 0 %; CH 29.8; CHCM 34.7; Eosinophils % (A) 1 %; HCT 34.7 % (34.0-46.0); HGB 11.6 gm/dL (11.4-16.0); Luc # (Auto) 0.11; Luc % (Auto) 4; Lymphocytes # (A) 1.1 k/uL (1.0-4.8); Lymphocytes % (A) 36 %; MCH 28.8 pg (25.0-35.0); MCHC 33.4 g/dL (31.0-37.0); MCV 86.1 fL (80.0-100.0); Mean Platelet Volume 9.8; Monocytes # (A) 0.2 k/uL (0-1.0); Monocytes % (A) 5 %; Neutrophils # (A) 1.6 k/uL (1.3-7.7); Neutrophils % (A) 54 %; RBC 4.03 m/uL (3.80-5.40); RDW 14.4 % (11.5-15.5); WBC 2.9 k/uL (3.8-10.6); WBC (Perox) 3.04
[2017-03-19 06:41] LABS: Anion Gap 7 mmol/L; Blood Urea Nitrogen 3 mg/dL (7-17); Calcium 8.2 mg/dL (8.4-10.2); Carbon Dioxide 21 mmol/L (22-30); Chloride 112 mmol/L (98-107); Glucose 80 mg/dL (74-99); Non-African American GFR(MDRD) >60 (>60 ml/min/1.73 sqM); Potassium 3.4 mmol/L (3.5-5.1); Sodium 140 mmol/L (137-145)
[2017-03-19 07:37] VITALS: RESP 16
[2017-03-19] MEDS: 0.9% NACL WITH KCL 40 MEQ/L 1,000 ML IV SCH (08:04)
[2017-03-19] MEDS: ACETAMINOPHEN TAB 325 MG TAB PO PRN (08:10)
[2017-03-19] MEDS: AZITHROMYCIN 500 MG in SODIUM CHLORIDE 0.9% 250 ML IVPB SCH (09:10)
--- NOTE | 2017-03-19 11:27 | P.PN ---
Subjective Principal diagnosis: Acute right lower lobe pneumonia, community-acquired This is a very pleasant 21-year-old female patient who follows with Dr. Goldman as her primary care physician. She has a history of MRSA infection of the groin, anxiety/depression, chronic and ongoing tobacco dependence, daily marijuana use. She is currently 11 weeks . She has a 3-year-old child and a 9- month-old son at home. She had developed shortness of breath, cough and congestion. She had been initiated on a Z-Angel in the outpatient setting however her symptoms continued to progress and she was seen here in the emergency yesterday. She was found to have a left lower lobe pneumonia and was admitted. She is seen today in consultation on the pediatric floor. She is awake and alert in no acute distress. She does have a productive cough of yellow green sputum. Sputum sample is pending. Urine culture is pending. Urine drug screen is positive for THC. No leukocytosis. Lactic acid 0.7. She's had a T-max of 101.0. She is maintaining good O2 saturations in the mid 90s on room air. She's been hemodynamically stable. She is feeling slightly better today as compared to yesterday. She's been afebrile this morning. She's been initiated on ceftriaxone and azithromycin. Infectious disease is on the case. outsole caser is on the case as well. Patient was reevaluated today on 03/19/2017, she seems to be doing better, breathing a lot easier, continues to have productive cough, no fever, no chills , no hemoptysis, no chest pain. Labs were reviewed including CBC and basic metabolic profile. Continues to have a white count of 2.9. No chest x-ray was done today, but I plan to do 1 tomorrow. Sputum cultures are so far nondiagnostic. Objective - Vital Signs Vital signs: Vital Signs Temp 97.8 F 03/19/17 07:35 Pulse 98 03/19/17 07:35 Resp 16 03/19/17 07:35 BP 98/50 03/19/17 07:35 Pulse Ox 95 03/19/17 07:35 Intake & Output 03/18/17 03/19/17 03/19/17 18:59 06:59 18:59 Intake Total 60 660 240 Balance 60 660 240 Weight 49.895 kg Intake: Oral 60 660 240 Other: Voiding Method Toilet # Voids 2 1 - Exam GENERAL EXAM: Alert, active, comfortable in no apparent distress. HEAD: Normocephalic. EYES: Normal reaction of pupils, equal size. NOSE: Clear with pink turbinates. THROAT: No erythema or exudates. NECK: No masses, no JVD. CHEST: No chest wall deformity. LUNGS: Equal air entry with crackles in the left posterior base. CVS: S1 and S2 normal with no audible mumurs, regular rhythm. ABDOMEN: No hepatosplenomegaly, normal bowel sounds, no guarding or rigidity. SPINE: No scoliosis or deformity SKIN: No rashes CENTRAL NERVOUS SYSTEM: No focal deficits, tone is normal in all 4 extremities. Extremities: There is no significant peripheral edema. No clubbing, no cyanosis. Peripheral pulses are intact. - Labs CBC & Chem 7: 03/19/17 06:07 03/19/17 06:07 Labs: Abnormal Lab Results - Last 24 Hours (Table) 03/17/17 03/19/17 03/19/17 Range/Units 10:17 06:07 06:07 WBC 2.9 L (3.8-10.6) k/uL Plt Count 119 L (150-450) k/uL Potassium 3.4 L (3.5-5.1) mmol/L Chloride 112 H (98-107) mmol/L Carbon Dioxide 21 L (22-30) mmol/L BUN 3 L (7-17) mg/dL Creatinine 0.33 L (0.52-1.04) mg/dL Calcium 8.2 L (8.4-10.2) mg/dL Mycoplasma pneumon IgG 1.26 H (<=0.90) INDEX Microbiology - Last 24 Hours (Table) 03/17/17 07:16 Gram Stain - Preliminary Sputum Sputum Culture - Preliminary Jazmin albicans 03/17/17 10:28 Urine Culture - Final Urine,Clean Catch 03/17/17 10:17 Blood Culture - Preliminary Blood No Growth after 24 hours Assessment and Plan Plan: #1 Left lower lobe pneumonia suspect community-acquired. #2 History of MRSA infection in the right groin in 2016. #3 Chronic and ongoing tobacco dependence. #4 Chronic and ongoing marijuana use. #5 , 11 weeks per ultrasound. #6 History of anxiety/depression. #7 Hypokalemia, initial potassium 2.9 currently 3.4 Recommendation: Continue present treatment plan, repeat chest x-ray in a.m., patient is already showing some clinical improvement, at least of the chest x- ray is not getting any worse, could consider discharging the patient home on Ceftin and Zithromax. We'll continue to follow. Time with Patient: Less than 30
[2017-03-19 12:25] VITALS: BP 104/57; PULSE 67; TEMP 97.2
== END 2017-03-19 12:40 | disposition left against medical advice (07) | DRG 781 ==
LOC: EC 09:47 → 6PED 13:52
PROVIDERS: ADMIT Internal Medicine; ATTEND Internal Medicine
DX: O98.811 Other maternal infectious and parasitic diseases complicating pregnancy, first trimester (principal); A41.9 Sepsis, unspecified organism; J18.9 Pneumonia, unspecified organism; E87.1 Hypo-osmolality and hyponatremia; O99.321 Drug use complicating pregnancy, first trimester; O99.111 Other diseases of the blood and blood-forming organs and certain disorders involving the immune mechanism complicating pregnancy, first trimester; O99.89 Other specified diseases and conditions complicating pregnancy, childbirth and the puerperium; F17.210 Nicotine dependence, cigarettes, uncomplicated; O99.281 Endocrine, nutritional and metabolic diseases complicating pregnancy, first trimester; F12.90 Cannabis use, unspecified, uncomplicated; O99.331 Smoking (tobacco) complicating pregnancy, first trimester; E87.6 Hypokalemia; O99.511 Diseases of the respiratory system complicating pregnancy, first trimester; Z3A.11 11 weeks gestation of pregnancy; Z86.14 Personal history of Methicillin resistant Staphylococcus aureus infection; Z86.59 Personal history of other mental and behavioral disorders; Z53.21 Procedure and treatment not carried out due to patient leaving prior to being seen by health care provider
CPT/HCPCS: 36415; 71020; 76801; 76813; 80048; 80053; 80074; 80306; 81001; 83605; 85025; 86738; 87040; 87070; 87086; 87205; 87449; 94640; 96361; 96365; 96367; 96375; 99285

== ENCOUNTER → 2017-06-08 | Outpatient (CLI) | payer OTHER ==
[2017-06-08 11:58] LABS: CH 28.9; CHCM 33.4; HCT 35.1 % (34.0-46.0); HDW 2.54; HGB 11.5 gm/dL (11.4-16.0); MCH 28.5 pg (25.0-35.0); MCHC 32.8 g/dL (31.0-37.0); MCV 86.9 fL (80.0-100.0); Mean Platelet Volume 9.5; RBC 4.04 m/uL (3.80-5.40); RDW 15.5 % (11.5-15.5); WBC 9.5 k/uL (3.8-10.6)
[2017-06-08 12:15] LABS: Glucose 79 mg/dL (74-99); Non-African American GFR(MDRD) >60 (>60 ml/min/1.73 sqM)
[2017-06-08 15:45] LABS: Treponemal Ab Non-Reactive (Non-Reactive)
== END | disposition home or self-care (01) ==
LOC: LABWHC1 11:39
PROVIDERS: ATTEND Obstetrics & Gynecology
DX: O26.812 Pregnancy related exhaustion and fatigue, second trimester (principal); Z3A.00 Weeks of gestation of pregnancy not specified
CPT/HCPCS: 36415; 82565; 82947; 85027; 86762; 86780; 86850; 86900; 86901; 87340; 87390

== ENCOUNTER → 2017-07-29 | Outpatient (CLI) | payer OTHER ==
[2017-07-29 14:27] LABS: CH 29.2; CHCM 33.8; HCT 34.8 % (34.0-46.0); HDW 2.83; HGB 11.5 gm/dL (11.4-16.0); MCH 28.8 pg (25.0-35.0); MCHC 33.2 g/dL (31.0-37.0); MCV 86.8 fL (80.0-100.0); Mean Platelet Volume 8.5; RBC 4.01 m/uL (3.80-5.40); RDW 13.8 % (11.5-15.5); WBC 11.1 k/uL (3.8-10.6)
[2017-07-29 14:37] LABS: Appearance,Urine Turbid (Clear); Bilirubin,Urine Negative (Negative); Glucose,Urine (UA) Negative (Negative); Ketones,Urine 1+ (Negative); Leukocyte Esterase,Urine Large (Negative); Mucus,Urine Many /hpf; Nitrite,Urine Negative (Negative); PH, Urine 6.5 (5.0-8.0); Particle Count 70064; Protein,Urine 1+ (Negative); RBC,Urine 15 /hpf (0-5); Specific Gravity,Urine 1.021 (1.001-1.035); Squamous Epithelial Cell,Urine 47 /hpf (0-4); UA Billing (MACRO vs. MICRO) MICRO; Urobilinogen,Urine <2.0 mg/dL (<2.0); WBC,Urine 119 /hpf (0-5)
== END | disposition home or self-care (01) ==
LOC: LABWHC1 12:21
PROVIDERS: ATTEND Obstetrics & Gynecology
DX: Z34.82 Encounter for supervision of other normal pregnancy, second trimester (principal); Z3A.00 Weeks of gestation of pregnancy not specified
CPT/HCPCS: 36415; 81001; 82950; 85027; 87086; 87491; 87591

== ENCOUNTER 2017-08-17 17:30 | Outpatient (CLI) | payer OTHER ==
[2017-08-17 18:40] VITALS: BP 121/55; PULSE 81; RESP 18; TEMP 98.5
[2017-08-17] MEDS ORDERED: LACTATED RINGERS 1,000 ML IV SCH ×2 (20:00→21:00)
[2017-08-17] MEDS ORDERED: BETAMET ACET-BETAMETH SOD PHOS 6 MG/ML VIAL IM SCH (20:00)
--- NOTE | 2017-08-17 23:19 | P.MSEPDOC ---
Presenting Problems - Arrival Data Date of Arrival on Unit: 08/17/17 Time of Arrival on Unit: 17:40 Mode of Transport: Ambulatory - Complaint OB-Reason for Admission/Chief Complaint: Possible Onset of Labor Medical History - Information : 4 Para: 2 Term: 2 : 0 Abortions: Spontaneous or Elective: 1 Number of Living Children: 2 - Gestational Age Gestational Age by RICHARD (wks/days): 32 Weeks and 4 Days - History Complications: Smoker Sexually Transmitted Diseases: Chlamydia Comment: tx 2 weeks ago for chlamydia Review of Systems - Review of Systems Constitutional: No problems Breast: No problems ENT: No problems Cardiovascular: No problems Respiratory: No problems Gastrointestinal: No problems Genitourinary: No problems Musculoskeletal: No problems Neurological: No problems Skin: No problems Vital Signs - Temperature Temperature: 98.5 F Temperature Source: Oral - Pulse Right Brachial Pulse Rate: 81 Pulse Assessment Method: Automatic Cuff - Respirations Respiratory Rate: 18 Oxygen Delivery Method: Room Air O2 Sat by Pulse Oximetry: 98 - Blood Pressure Right Arm Blood Pressure: 121/55 Blood Pressure Mean: 77 Blood Pressure Source: Automatic Cuff Medical Screen Scoring (Pre) - Cervical Exam Dilation: 0 cm = 0 Membranes: Intact - Uterine Contractions Frequency: < 36 weeks = 6 Duration: > 40 seconds = 2 Intensity: N/A - Maternal Vital Signs Maternal Temperature: N/A Maternal Blood Pressure: N/A Signs of Preeclampsia: N/A Maternal Respirations: N/A - Pain Assessment Pain Location and Character: Lower, Sacrum Pain Scale Used: Numeric (1 - 10) Pain Intensity: 5 Pain Management Goal: 7 Pain Description: *Acute Pain Frequency: Intermittent Pain Duration: 3 Pain Duration Units: Hours Pain Behavior: None Exhibited Pain Aggravating Factors: Activity Non-Pharmacological Interventions: Darkened Room - Maternal Trauma Maternal Trauma: N/A - Assessment Baseline FHR: 135 Heart Rate - NICHD Category: Category I (Normal) = 0 Position: N/A Station: N/A - Total Score Total Score (Pre): 8 - Level of Risk Level of Risk: Medium (6-9) Physician Notification (Pre) - Physician Notified Physician Notified Date: 08/17/17 Physician Notified Time: 18:30 Physician/Practitioner Notifed:: mitzi Spoke With: mitzi New Order Received: Yes - Notification Comment Comment: observe in triage until 194. obtain reactive nst. allow contx to space. h20 for hydration po. may disch at 194 regardless of contractions. Medical Screen Scoring (Post) - Cervical Exam Dilation: 1-3 cm = 1 Effacement: More than 50% = 2 Membranes: Intact - Uterine Contractions Frequency: > or = 36 weeks =2 Duration: > 40 seconds = 2 Intensity: N/A - Maternal Vital Signs Maternal Temperature: N/A Maternal Blood Pressure: N/A Signs of Preeclampsia: N/A Maternal Respirations: N/A - Assessment Heart Rate: 130 Heart Rate - NICHD Category: Category I (Normal) = 0 NST: Reactive Position: N/A - Total Score Total Score (Post): 7 - Post Treatment Level of Risk Post Treatment Level of Risk: High (10+) Physician Notification (Post) - Physician Notified Physician Notified Date: 08/17/17 Physician Notified Time: 20:58 Physician/Practitioner Notified:: Dr Felipe - Notification Comment Comment: reported on IV hydration status, pt feeling better, not feeling cntrx often anymore, requesting to go home. orders to d/c home with instructions. return tomorrow for 2nd dose of celestone Disposition - Disposition OB Disposition: Discharge to home Discharge Date: 08/17/17 Discharge Time: 21:02 I agree with the RN Medical Screening Exam: Yes Risk & Benefit of care provided described in d/c instruction: Yes Diagnosis: LABOR WITHOUT DELIVERY, THIRD TRIMESTER
== END 2017-08-17 21:05 | disposition home or self-care (01) ==
LOC: FBPOP 17:30
PROVIDERS: ATTEND Obstetrics & Gynecology
DX: O60.03 Preterm labor without delivery, third trimester (principal); Z3A.32 32 weeks gestation of pregnancy
CPT/HCPCS: 59025; 96360; G0463; J0702; 99214

== ENCOUNTER 2017-08-18 19:27 | Outpatient (CLI) | payer OTHER ==
[2017-08-18] MEDS ORDERED: BETAMET ACET-BETAMETH SOD PHOS 6 MG/ML VIAL IM STA (19:38)
[2017-08-18 20:18] VITALS: BP 117/62; PULSE 99; RESP 16; TEMP 97.5
--- NOTE | 2017-08-18 20:20 | P.MSEPDOC ---
Presenting Problems - Arrival Data Date of Arrival on Unit: 08/18/17 Time of Arrival on Unit: 19:27 Mode of Transport: Ambulatory - Complaint OB-Reason for Admission/Chief Complaint: Possible Onset of Labor, Celestone Injection Comment: Repeat celestone Medical History - Information : 4 Para: 2 Term: 2 : 0 Abortions: Spontaneous or Elective: 1 Number of Living Children: 2 - Gestational Age Gestational Age by RICHARD (wks/days): 32 Weeks and 5 Days Review of Systems - Review of Systems Constitutional: No problems Breast: No problems ENT: No problems Cardiovascular: No problems Respiratory: No problems Gastrointestinal: No problems Genitourinary: No problems Musculoskeletal: No problems Neurological: No problems Skin: No problems Vital Signs - Temperature Temperature: 97.5 F Temperature Source: Temporal Artery Scan - Pulse Right Sitting Brachial Pulse Rate: 99 Pulse Assessment Method: Automatic Cuff - Respirations Respiratory Rate: 16 Oxygen Delivery Method: Room Air - Blood Pressure Right Arm Sitting Blood Pressure: 117/62 Blood Pressure Mean: 80 Blood Pressure Source: Automatic Cuff Medical Screen Scoring (Pre) - Cervical Exam Dilation: Exam Deferred Effacement: Exam Deferred Membranes: Intact - Uterine Contractions Frequency: N/A Duration: N/A Intensity: N/A - Maternal Vital Signs Maternal Temperature: N/A Maternal Blood Pressure: N/A Signs of Preeclampsia: N/A Maternal Respirations: N/A - Maternal Trauma Maternal Trauma: N/A - Assessment Baseline FHR: 130 Heart Rate - NICHD Category: Category I (Normal) = 0 NST: Reactive Position: N/A Station: N/A - Total Score Total Score (Pre): 0 - Level of Risk Level of Risk: Low (0-5) Physician Notification (Pre) - Physician Notified Physician Notified Date: 08/18/17 Physician Notified Time: 20:10 Physician/Practitioner Notifed:: Kenny Spoke With: Elisabeth New Order Received: Yes - Notification Comment Comment: Pt presents for repeat celestone, no FFN yesterday r/t intercourse, pt denies contractions. Pt to be d/c home, no FFN to be collected. Disposition - Disposition OB Disposition: Triage, Written follow up instructions reviewed Discharge Date: 08/18/17 Discharge Time: 20:15 I agree with the RN Medical Screening Exam: Yes Risk & Benefit of care provided described in d/c instruction: Yes Diagnosis: FALSE LABOR BEFORE 37 COMPLETED WEEKS OF GEST, THIRD TRI
== END 2017-08-18 20:15 | disposition home or self-care (01) ==
LOC: FBPOP 19:27
PROVIDERS: ATTEND Obstetrics & Gynecology
DX: O47.03 False labor before 37 completed weeks of gestation, third trimester (principal); Z3A.32 32 weeks gestation of pregnancy
CPT/HCPCS: 59025; 96372; J0702

== ENCOUNTER 2017-09-25 19:50 | Inpatient (IN) | payer OTHER ==
[2017-09-25] MEDS ORDERED: METHYLERGONOVINE 0.2 MG/ML 1 ML AMP IM PRN (20:16)
[2017-09-25] MEDS ORDERED: OXYTOCIN 10 UNIT/ML 1 ML VIAL IM PRN (20:16)
[2017-09-25] MEDS ORDERED: CARBOPROST TROMETHAMINE 250 MCG/ML 1 ML AMP IM PRN (20:16)
[2017-09-25] MEDS ORDERED: TERBUTALINE 1 MG/ML VIAL SQ PRN (20:16)
[2017-09-25] MEDS ORDERED: LIDOCAINE 1% (PF) 10 MG/ML (30 ML SDV) SQ PRN (20:16)
[2017-09-25] MEDS: LACTATED RINGERS 1,000 ML IV SCH ×2 (20:24→20:43)
[2017-09-25 20:28] LABS: Basophils % (A) 0 %; Eosinophils # (A) 0.1 k/uL (0-0.7); Eosinophils % (A) 1 %; HCT 37.6 % (34.0-46.0); HGB 12.1 gm/dL (11.4-16.0); Lymphocytes % (A) 14 %; MCH 28.8 pg (25.0-35.0); MCHC 32.2 g/dL (31.0-37.0); MCV 89.4 fL (80.0-100.0); Mean Platelet Volume 8.9; Monocytes # (A) 0.8 k/uL (0-1.0); Monocytes % (A) 6 %; Neutrophils # (A) 11.1 k/uL (1.3-7.7); Neutrophils % (A) 78 %; Platelet Count 189 k/uL (150-450); RDW 14.2 % (11.5-15.5); WBC 14.2 k/uL (3.8-10.6)
[2017-09-25] MEDS ORDERED: BUPIVACAINE (PF) 0.25% 30 ML VIAL ONE (20:31)
[2017-09-25] MEDS ORDERED: fentaNYL (PF) 50 MCG/ML 5 ML AMP ONE (20:31)
[2017-09-25] MEDS ORDERED: SODIUM CHLORIDE 0.9% 100 ML BAG ONE (20:31)
[2017-09-25 20:39] VITALS: BMI 25.4
[2017-09-25] MEDS ORDERED: BUPIVACAINE (PF) 0.25% 25 ML, fentaNYL (PF) 200 MCG in SODIUM CHLORIDE 0.9% 71 ML EPIDURAL ONE (20:57)
--- NOTE | 2017-09-25 21:15 | P.HPOB ---
History of Present Illness H&P Date: 09/25/17 Chief Complaint: Contractions. This patient is a pleasant 21-year-old 4 para 2 female estimated date of confinement 10/08/2017 estimated gestational age 38-2/7 weeks gestation who is admitted to labor and delivery with complaints of regular painful contractions. Patient's 3 cm apparently in the office is now 5 cm dilated in active labor. care is per Dr. Cox appears to be uncomplicated. Review of Systems Gastrointestinal: Reports heartburn Genitourinary: Reports Menstruation: Reports amenorrhea Past Medical History Past Medical History: No Reported History Additional Past Medical History / Comment(s): Pt denies any past medical hx. History of Any Multi-Drug Resistant Organisms: MRSA Date of last positivie culture/infection: 11/14/15 MDRO Source:: Gretel michaels Past Surgical History: No Surgical Hx Reported Past Anesthesia/Blood Transfusion Reactions: No Reported Reaction Past Psychological History: Anxiety, Depression Additional Psychological History / Comment(s): Pt states she resides with her 3 yr old child and her 9 month old baby. She states she is independent. 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 Smoking Status: Current every day smoker Past Alcohol Use History: None Reported Additional Past Alcohol Use History / Comment(s): Pt started smoking in 2010 and is a half a pack a day smoker. Past Drug Use History: Marijuana Additional Drug Use History / Comment(s): Pt states she smokes 1 joint a day. - Past Family History Father Family Medical History: No Reported History Additional Family Medical History / Comment(s): Father is healthy. Mother Family Medical History: No Reported History Additional Family Medical History / Comment(s): Mother is healthy. Medications and Allergies Home Medications Medication Instructions Recorded Confirmed Type No Known Home Medications [No 03/17/17 09/25/17 History Known Home Medications] Allergies Allergy/AdvReac Type Severity Reaction Status Date / Time No Known Allergies Allergy Verified 09/25/17 20:15 Exam - Vital Signs Vital signs: Vital Signs Temp Pulse Resp BP Pulse Ox 09/25/17 20:36 97.3 F L 91 15 118/68 98 Intake and Output 09/25/17 09/25/17 09/25/17 06:59 14:59 22:59 Other: Weight 69.4 kg Patient Weight 09/26/17 06:59 Weight 69.4 kg - OBG Physical Exam Abdomen: bowel sounds normal, no diffuse tenderness, no bruit present, no guarding noted, no hepatomegaly, no splenomegaly, no mass Vulva: both: normal Vagina: normal moisture, no discharge Cervix: Cervix is 7-8 cm dilated completely effaced -1 station Cervix: no lesion, no discharge Uterus: enlarged (Fundal height is consistent with a term .) Results blood work shows she is O positive, rubella low positive. Hepatitis B is negative RPR is nonreactive. Patient normal Glucola. Ultrasounds have been normal. Result Diagrams: 09/25/17 20:20 Abnormal Lab Results - Last 24 Hours (Table) 09/25/17 Range/Units 20:20 WBC 14.2 H (3.8-10.6) k/uL Neutrophils # 11.1 H (1.3-7.7) k/uL Assessment and Plan Assessment: This is a 21-year-old 4 para 2 female 38-2/7 weeks gestation who presents to labor and delivery in active labor. Plan is anticipate normal vaginal delivery. (1) Normal labor Current Visit: No Status: Acute Code(s): O80 - ENCOUNTER FOR FULL-TERM UNCOMPLICATED DELIVERY SNOMED Code(s): 32322780
[2017-09-25] MEDS ORDERED: diphenhydrAMINE 25 MG CAP PO PRN (22:55)
[2017-09-25] MEDS ORDERED: HYDROCORTISONE 2.5% RECTAL CREAM 30 GM TUBE RECTAL PRN (22:55)
[2017-09-25] MEDS ORDERED: WITCH HAZEL 1 EACH MED..PAD TOPICAL PRN (22:55)
[2017-09-25] MEDS ORDERED: ACETAMINOPHEN TAB 325 MG TAB PO PRN (22:55)
[2017-09-25] MEDS ORDERED: diphenhydrAMINE 50 MG/ML 1 ML VIAL IVP PRN (22:55)
[2017-09-25] MEDS ORDERED: SIMETHICONE 80 MG CHEWABLE PO PRN (22:55)
[2017-09-25] MEDS ORDERED: LANOLIN CREAM 5 GM TUBE TOPICAL PRN (22:55)
[2017-09-25] MEDS ORDERED: BISACODYL 10 MG SUPP RECTAL PRN (22:55)
[2017-09-25] MEDS ORDERED: BENZOCAINE/MENTHOL SPRAY 1 GM/SPRAY AEROSOL TOPICAL PRN (22:55)
[2017-09-25] MEDS ORDERED: ZOLPIDEM 5 MG TAB PO PRN (22:55)
--- NOTE | 2017-09-25 22:55 | P.PROBDLV ---
Vaginal Delivery Note - . Vaginal Delivery Note: Normal spontaneous vaginal delivery viable male infant Apgars 9 and 9 delivery time was 2243 hrs. Please see dictated H&P for intimate details of this patient's admission. Brief summary this is a 21-year-old 4 para 2 female 38 and one sevenths weeks gestation who is admitted to labor and delivery complaining of contractions found to be in active labor. Patient receives an epidural 5 cm dilated and artificial rupture membranes at 7 cm time for clear fluid. Labor progresses normally she gets to complete pushes approximately 2 times pushes the head over the intact perineum. Mouth and nares are bulb suctioned. There is a nuchal cord but is very loose and without maternal effort she delivered spontaneously the anterior and posterior shoulder and rest this infant 's body. Is a vigorous viable male infant Apgars are 9 and 9 delivery time was 2243 hrs. After delivery of the infant the umbilical cord is doubly clamped and cut appears to be trivascular. Placenta spontaneously delivered intact estimated blood loss 1 50 mL. There are no lacerations and no repair. All counts correct 3. There are no complications. Infant and mother stable delivery room.
[2017-09-25] MEDS ORDERED: OXYTOCIN 20 UNITS/1000 ML NS 1,000 ML IV SCH (23:00)
[2017-09-26] MEDS: IBUPROFEN 600 MG TAB PO PRN ×3 (03:19→22:38)
--- NOTE | 2017-09-26 06:39 | P.PNOBGVD ---
Subjective - Subjective Patient reports: Reports appetite normal, Reports voiding normally, Reports pain well controlled, Reports ambulating normally : doing well Objective - Latest Vital Signs Latest vital signs: Vital Signs Temp Pulse Resp BP Pulse Ox 09/26/17 00:54 98 F 71 16 114/54 98 09/26/17 00:24 75 15 114/55 09/25/17 23:54 66 15 114/55 09/25/17 23:39 70 15 113/58 98 09/25/17 23:24 61 15 115/56 98 09/25/17 23:09 69 15 117/56 09/25/17 22:54 97.8 F 68 15 117/56 09/25/17 20:36 97.3 F L 91 15 118/68 98 Intake and Output 09/25/17 09/25/17 09/26/17 14:59 22:59 06:59 Intake Total 1540 Balance 1540 Intake: Intake, IV Titration 1540 Amount Bupivacaine (Pf) 0.25% 25 40 ml fentaNYL (PF) 200 mcg In Sodium Chloride 0.9% 71 ml @ Titrate EPIDURAL ONCE ONE Rx#:[id number] Lactated Ringers 1,000 ml 1500 @ 125 mls/hr IV .Q8H [facility] Rx#:[id number] Other: # Voids 1 Weight 69.4 kg Patient Weight 09/26/17 06:59 Weight 69.4 kg - Exam Lungs: bilateral: normal Chest: Normal S1, Normal S2 Extremities: Present: normal Abdomen: Present: normal appearance, soft Uterus: Present: normal, firm - Labs Labs: Abnormal Lab Results - Last 24 Hours (Table) 09/25/17 Range/Units 20:20 WBC 14.2 H (3.8-10.6) k/uL Neutrophils # 11.1 H (1.3-7.7) k/uL Assessment and Plan Assessment: day #1. Patient is resting without complaints. Vital signs are stable she's afebrile. Uterus is firm nontender she's having normal lochia. My impression is a normal course. Plan is continue routine care discharge home tomorrow. (1) Normal labor Current Visit: No Status: Acute Code(s): O80 - ENCOUNTER FOR FULL-TERM UNCOMPLICATED DELIVERY SNOMED Code(s): 15168824
[2017-09-26 08:28] VITALS: RESP 16
[2017-09-26] MEDS: SENNOSIDES-DOCUSATE SODIUM 1 EACH TAB PO SCH ×2 (08:36→21:51)
[2017-09-26 15:54] VITALS: BP 113/68; PULSE 51; TEMP 98
== END 2017-09-26 23:00 | disposition home or self-care (01) | DRG 775 ==
LOC: FBPOP 19:50 → 4FBP 20:08
PROVIDERS: ADMIT Obstetrics & Gynecology; ATTEND Obstetrics & Gynecology
DX: O69.81X0 Labor and delivery complicated by cord around neck, without compression, not applicable or unspecified (principal); Z37.0 Single live birth; O99.344 Other mental disorders complicating childbirth; F17.210 Nicotine dependence, cigarettes, uncomplicated; O99.334 Smoking (tobacco) complicating childbirth; F41.9 Anxiety disorder, unspecified; F32.9 Major depressive disorder, single episode, unspecified; Z3A.38 38 weeks gestation of pregnancy; Z86.14 Personal history of Methicillin resistant Staphylococcus aureus infection
CPT/HCPCS: 85025; 88307

== ENCOUNTER 2020-07-03 02:19 | Emergency (ER) | payer OTHER ==
[2020-07-03 02:25] VITALS: TEMP 98.6
--- NOTE | 2020-07-03 02:49 | ED ---
Female Urogenital HPI - General Chief complaint: Vaginal Bleeding Stated complaint: Vaginal Bleeding, 7 wks pgt Time Seen by Provider: 07/03/20 02:33 Source: patient Mode of arrival: ambulatory Limitations: no limitations - History of Present Illness Initial comments: This patient is a 44-year-old woman who is G5, P3, Ab1, presenting with onset of vaginal bleeding approximate 45 minutes ago with sexual intercourse. The patient states that her last period was approximately May 13. She had taken a test that was +3-4 weeks later. Patient denies significant abdominal discomfort. No symptoms of anemia, no lightheadedness or syncope, no palpitations or dyspnea. No diaphoresis. MD Complaint: vaginal bleeding Onset/Timin -: minutes(s) Severity scale (1-10): 0 Improves with: none Worsens with: none Patient : Yes Associated Symptoms: vaginal bleeding - Related Data Sexually active: Yes : 5 Para: 3 A: 1 Previous Rx's Medication Instructions Recorded Amoxicillin 500 mg PO Q8H #21 capsule 07/03/20 Allergies Allergy/AdvReac Type Severity Reaction Status Date / Time sulfamethoxazole Allergy Rash/Hives Verified 07/03/20 02:25 [From Bactrim] trimethoprim [From Bactrim] Allergy Rash/Hives Verified 07/03/20 02:25 Review of Systems ROS Statement: Those systems with pertinent positive or pertinent negative responses have been documented in the HPI. ROS Other: All systems not noted in ROS Statement are negative. Constitutional: Denies: fever Respiratory: Denies: cough, dyspnea Cardiovascular: Denies: chest pain, palpitations, orthopnea, edema, syncope Gastrointestinal: Denies: abdominal pain, nausea, vomiting, diarrhea Genitourinary: Reports: as per HPI. Denies: dysuria, frequency, hematuria, discharge, abnormal menses, dyspareunia Musculoskeletal: Denies: back pain Skin: Denies: rash Neurological: Denies: headache, weakness, numbness Hematological/Lymphatic: Denies: easy bleeding Past Medical History Past Medical History: No Reported History Additional Past Medical History / Comment(s): Pt denies any past medical hx. History of Any Multi-Drug Resistant Organisms: MRSA Date of last positivie culture/infection: 11/14/15 MDRO Source:: R groin Past Surgical History: No Surgical Hx Reported Past Anesthesia/Blood Transfusion Reactions: No Reported Reaction Past Psychological History: Anxiety, Depression Smoking Status: Current every day smoker Past Alcohol Use History: None Reported Past Drug Use History: Marijuana - Past Family History Father Family Medical History: No Reported History Additional Family Medical History / Comment(s): Father is healthy. Mother Family Medical History: No Reported History Additional Family Medical History / Comment(s): Mother is healthy. General Exam Limitations: no limitations General appearance: alert, in no apparent distress Head exam: Present: atraumatic, normocephalic Eye exam: Present: normal appearance. Absent: scleral icterus, conjunctival injection Neck exam: Present: normal inspection Respiratory exam: Present: normal lung sounds bilaterally. Absent: respiratory distress, wheezes, rales, rhonchi, stridor Cardiovascular Exam: Present: regular rate, normal rhythm, normal heart sounds. Absent: systolic murmur, diastolic murmur, rubs, gallop GI/Abdominal exam: Present: soft. Absent: distended, tenderness, guarding, rebound, rigid, mass External exam: Present: normal external exam. Absent: erythema, swelling, lesions, lacerations, ecchymosis Speculum exam: Present: normal speculum exam, vaginal bleeding (No active bleeding from cervix. Scant amount of blood in vaginal vault). Absent: erythema, vaginal discharge, cervical discharge, foreign body, tissue, l aceration By manual exam: Present: normal by manual exam, uterine enlargement (Approximately 6-8 week size). Absent: cervical motion tenderness, adnexal tenderness, adnexal mass, uterine tenderness Extremities exam: Present: normal inspection, normal capillary refill. Absent: pedal edema, calf tenderness Back exam: Present: normal inspection. Absent: CVA tenderness (R), CVA tenderness (L) Neurological exam: Present: alert Skin exam: Present: warm, dry, intact, normal color. Absent: rash Course Vital Signs 07/03/20 02:22 Temperature 98.6 F Pulse Rate 90 Respiratory 18 Rate Blood Pressure 122/72 O2 Sat by Pulse 99 Oximetry Medical Decision Making - Lab Data Result diagrams: 07/03/20 03:23 Lab Results 07/03/20 07/03/20 Range/Units 03:23 03:23 WBC 8.5 (3.8-10.6) k/uL RBC 4.35 (3.80-5.40) m/uL Hgb 13.6 (11.4-16.0) gm/dL Hct 39.4 (34.0-46.0) % MCV 90.6 (80.0-100.0) fL MCH 31.2 (25.0-35.0) pg MCHC 34.4 (31.0-37.0) g/dL RDW 13.0 (11.5-15.5) % Plt Count 182 (150-450) k/uL MPV 9.0 Neutrophils % 64 % Lymphocytes % 24 % Monocytes % 8 % Eosinophils % 2 % Basophils % 1 % Neutrophils # 5.5 (1.3-7.7) k/uL Lymphocytes # 2.0 (1.0-4.8) k/uL Monocytes # 0.7 (0-1.0) k/uL Eosinophils # 0.2 (0-0.7) k/uL Basophils # 0.1 (0-0.2) k/uL Urine Color Yellow Urine Appearance Cloudy H (Clear) Urine pH 5.5 (5.0-8.0) Ur Specific [place] 1.023 (1.001-1.035) Urine Protein Trace H (Negative) Urine Glucose (UA) Negative (Negative) Urine Ketones Negative (Negative) Urine Blood Large H (Negative) Urine Nitrite Negative (Negative) Urine Bilirubin Negative (Negative) Urine Urobilinogen <2.0 (<2.0) mg/dL Ur Leukocyte Esterase Large H (Negative) Urine RBC 47 H (0-5) /hpf Urine WBC 36 H (0-5) /hpf Ur Squamous Epith Cells 2 (0-4) /hpf Hyaline Casts 1 (0-2) /lpf Urine Mucus Many H (None) /hpf Disposition Clinical Impression: Threatened , Urinary tract infection Disposition: HOME SELF-CARE Condition: Good Instructions (If sedation given, give patient instructions): Threatened Miscarriage (ED), Urinary Tract Infection in Women (ED) Prescriptions: Amoxicillin 500 mg PO Q8H #21 capsule Is patient prescribed a controlled substance at d/c from ED?: No Referrals: Milagro Goldman MD [Primary Care Provider] - 1-2 days
[2020-07-03 04:10] LABS: Appearance,Urine Cloudy (Clear); Bilirubin,Urine Negative (Negative); Blood,Urine Large (Negative); Color,Urine Yellow; Glucose,Urine (UA) Negative (Negative); Hyaline Casts,Urine 1 /lpf (0-2); Ketones,Urine Negative (Negative); Leukocyte Esterase,Urine Large (Negative); Mucus,Urine Many /hpf; Nitrite,Urine Negative (Negative); PH, Urine 5.5 (5.0-8.0); Protein,Urine Trace (Negative); RBC,Urine 47 /hpf (0-5); Specific Gravity,Urine 1.023 (1.001-1.035); Squamous Epithelial Cell,Urine 2 /hpf (0-4); Urobilinogen,Urine <2.0 mg/dL (<2.0); WBC,Urine 36 /hpf (0-5)
[2020-07-03 04:15] LABS: Basophils # (A) 0.1 k/uL (0-0.2); Basophils % (A) 1 %; Eosinophils # (A) 0.2 k/uL (0-0.7); Eosinophils % (A) 2 %; HCT 39.4 % (34.0-46.0); HGB 13.6 gm/dL (11.4-16.0); Lymphocytes % (A) 24 %; MCH 31.2 pg (25.0-35.0); MCHC 34.4 g/dL (31.0-37.0); MCV 90.6 fL (80.0-100.0); Monocytes # (A) 0.7 k/uL (0-1.0); Monocytes % (A) 8 %; Neutrophils # (A) 5.5 k/uL (1.3-7.7); Neutrophils % (A) 64 %; Platelet Count 182 k/uL (150-450); RBC 4.35 m/uL (3.80-5.40); WBC 8.5 k/uL (3.8-10.6)
[2020-07-03 05:11] VITALS: BP 132/76; PULSE 89; RESP 16
== END 2020-07-03 05:19 | disposition home or self-care (01) ==
LOC: EC 02:19
DX: O20.0 Threatened abortion (principal); N39.0 Urinary tract infection, site not specified; F17.200 Nicotine dependence, unspecified, uncomplicated; Z88.2 Allergy status to sulfonamides; Z88.1 Allergy status to other antibiotic agents; Z86.14 Personal history of Methicillin resistant Staphylococcus aureus infection; Z3A.01 Less than 8 weeks gestation of pregnancy
CPT/HCPCS: 36415; 76801; 81001; 84702; 85025; 86900; 86901; 99284

== ENCOUNTER → 2020-07-03 | Outpatient (CLI) | payer OTHER ==
--- NOTE | 2020-07-03 12:25 | US ---
EXAMINATION TYPE: Transabdominal DATE OF EXAM: 07/03/2020 11:35 AM COMPARISON: NONE CLINICAL HISTORY: O00.9 Ectopic . Patient stated was in EC department this morning with vagi nal bleeding in early noted after intercourse. EC physician wrote outpatient order for elton ent to be seen today; ; smoker; patient denies pelvic pain or cramping. EXAM PERFORMED: Transabdominal (TA) EXAM MEASUREMENTS: GESTATIONAL AGE / DATING Physician Established: Not yet established Dates by LMP: (6 weeks/2 days) EDC: 02/24/2021 Dates by First Scan: No previous. Dates by Current Scan for: ( 6 weeks/2 days) EDC: 02/24/2021 MATERNAL ANATOMY Uterus: 9.7 x 6.9 x 5.7cm Right Ovary: 1.9 x 1.9 x 1.8cm Left Ovary: 3.3 x 2.7 x 2.2cm Post CDS / Adnexa: wnl Presence of free fluid: no Presence of corpus luteal cyst: in left ovary = 1.7 x 1.5 x 0.9cm Presence of subchorionic bleed: yes, noted superiorly = 0.7 x 1.3 x 0.8cm. GESTATION / SURVEY CRL: 0.5cm (6 weeks/2 days) Yolk Sac (normal less than 6mm): 2.4mm Heart Rate: 118 bpm Rhythm: Normal IUP: single. live IUP Date of LMP: 05/20/2020 Beta HcG (if available): NA Single, live IUP,( 6 weeks/2 days, EDC: 02/24/2021, HR 118bpm;Presence of subchorionic bleed noted superiorly = 0.7 x 1.3 x 0.8cm. No ectopic was seen. IMPRESSION: Single viable intrauterine corresponding to an ultrasound age 6 weeks 2 days with estimated date of delivery 02/24/2021. Small subchorionic hemorrhage suspected.
== END | disposition home or self-care (01) ==
LOC: RADUSWWP 11:01
PROVIDERS: ATTEND Emergency Medicine
DX: O00.90 Unspecified ectopic pregnancy without intrauterine pregnancy (principal); Z3A.01 Less than 8 weeks gestation of pregnancy
CPT/HCPCS: 76801

== ENCOUNTER 2021-01-31 21:40 | Outpatient (CLI) | payer OTHER ==
[2021-01-31] MEDS ORDERED: LACTATED RINGERS 1,000 ML IV SCH ×2 (22:30→23:00)
[2021-01-31 22:57] LABS: Amorphous Sediment,Urine Occasional /hpf; Appearance,Urine Cloudy (Clear); Bilirubin,Urine Negative (Negative); Blood,Urine Negative (Negative); Color,Urine Yellow; Glucose,Urine (UA) Negative (Negative); Ketones,Urine Negative (Negative); Leukocyte Esterase,Urine Large (Negative); Mucus,Urine Many /hpf; Nitrite,Urine Negative (Negative); Protein,Urine 1+ (Negative); RBC,Urine 11 /hpf (0-5); Specific Gravity,Urine 1.031 (1.001-1.035); Squamous Epithelial Cell,Urine 13 /hpf (0-4); WBC,Urine 144 /hpf (0-5)
[2021-01-31] MEDS ORDERED: AMPICILLIN-SULBACTAM 1.5 GM in SODIUM CHLORIDE 0.9% 50 ML IVPB STA (23:05)
[2021-02-01 00:45] VITALS: BP 118/59; PULSE 81; RESP 16; TEMP 96.4
--- NOTE | 2021-02-02 11:40 | P.MSEPDOC ---
Presenting Problems - Arrival Data Date of Arrival on Unit: 02/01/21 Time of Arrival on Unit: 21:40 Mode of Transport: Ambulatory - Complaint OB-Reason for Admission/Chief Complaint: Possible Onset of Labor Comment: Pt presents to triage with c/o contx that started around 1400 occuring every 3-5 minutes Medical History - Information : 4 Para: 3 Term: 2 : 1 Abortions: Spontaneous or Elective: 0 Number of Living Children: 3 - Gestational Age Gestational Age by RICHARD (wks/days): 36 Weeks and 5 Days - History Complications: Smoker Comment: Pt reports smoking 1/2 ppd of cigarettes along with occasional marijuana use. Pt states she last used marijuana a "couple days ago" Review of Systems - Review of Systems Constitutional: No problems Breast: No problems ENT: No problems Cardiovascular: No problems Respiratory: No problems Gastrointestinal: No problems Genitourinary: No problems Musculoskeletal: No problems Neurological: No problems Skin: No problems Vital Signs - Temperature Temperature: 96.4 F Temperature Source: Temporal Artery Scan - Pulse Pulse Oximetery Pulse Rate: 81 Pulse Assessment Method: Automatic Cuff - Respirations Respiratory Rate: 16 Oxygen Delivery Method: Room Air O2 Sat by Pulse Oximetry: 96 - Blood Pressure Right Arm Blood Pressure: 118/59 Blood Pressure Mean: 78 Blood Pressure Source: Automatic Cuff Medical Screen Scoring - Cervical Exam Dilation (cm): 2 Effacement (%): 60 Station: -2 Membranes: Intact - Uterine Contractions Frequency From (mins): 2 Frequency To (mins): 7 Duration From (seconds): 40 Duration To (seconds): 160 Intensity: Moderate Resting: Soft to palpation - Assessment - Baby A Baseline FHR: 135 Heart Rate - NICHD Category: Category II (Indeterminate) NST: Reactive Physician Notification - Physician Notified Physician Notified Date: 01/31/21 Physician Notified Time: 22:17 Physician: Estevan Luna New Order Received: Yes - Notification Comment Comment: Dr. Luna called re: pt c/o of contx starting around 1400, maternal status,. status, variable deceleration, contraction pattern, denies bldng/lkng of fluid,. and SVE. Orders received to collect and send U/A and start IV with LR at 125mL/hr. Will. recheck cervix in [address] Luna with update. Dr. Luna updated on subsequent SVE, urinalysis results, maternal status, status and contx pattern. Orders received to administer 1.5 gm Unasyn IVPB now. Dr. 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 Case reviewed; plan agreed upon as documented in EMR&OBIX.: Yes Diagnosis: RELATED CONDITIONS, UNSPECIFIED, THIRD TRIMESTER
== END 2021-02-01 00:20 | disposition home or self-care (01) ==
LOC: FBPOP 21:40
PROVIDERS: ATTEND Obstetrics & Gynecology
DX: O26.93 Pregnancy related conditions, unspecified, third trimester (principal); O99.333 Smoking (tobacco) complicating pregnancy, third trimester; F17.210 Nicotine dependence, cigarettes, uncomplicated; Z3A.36 36 weeks gestation of pregnancy; Z88.1 Allergy status to other antibiotic agents; Z88.2 Allergy status to sulfonamides
CPT/HCPCS: 59025; 96361; 96365; 81001; G0463; J0295; 99213

== ENCOUNTER 2021-02-11 09:15 | Inpatient (IN) | payer OTHER ==
[2021-02-11] MEDS ORDERED: OXYTOCIN 10 UNIT/ML 1 ML VIAL IM PRN (10:45)
[2021-02-11] MEDS ORDERED: METHYLERGONOVINE 0.2 MG/ML 1 ML AMP IM PRN (10:45)
[2021-02-11] MEDS ORDERED: TERBUTALINE 1 MG/ML VIAL SQ PRN (10:45)
[2021-02-11] MEDS ORDERED: CARBOPROST TROMETHAMINE 250 MCG/ML 1 ML AMP IM PRN (10:45)
[2021-02-11] MEDS ORDERED: LIDOCAINE 0.5% (PF) 5 MG/ML (50 ML SDV) SQ PRN (10:45)
[2021-02-11] MEDS: LACTATED RINGERS 1,000 ML IV SCH ×2 (10:50→11:34)
[2021-02-11 11:04] LABS: Basophils % (A) 0 %; Eosinophils # (A) 0.4 k/uL (0-0.7); Eosinophils % (A) 2 %; HGB 13.3 gm/dL (11.4-16.0); Lymphocytes # (A) 1.4 k/uL (1.0-4.8); Lymphocytes % (A) 9 %; MCH 32.8 pg (25.0-35.0); MCHC 35.9 g/dL (31.0-37.0); MCV 91.1 fL (80.0-100.0); Mean Platelet Volume 9.5; Monocytes # (A) 0.7 k/uL (0-1.0); Monocytes % (A) 4 %; Neutrophils # (A) 13.6 k/uL (1.3-7.7); Neutrophils % (A) 84 %; Platelet Count 178 k/uL (150-450); RBC 4.06 m/uL (3.80-5.40); RDW 12.8 % (11.5-15.5); WBC 16.2 k/uL (3.8-10.6)
[2021-02-11] MEDS ORDERED: SODIUM CHLORIDE 0.9% 100 ML BAG ONE (11:20)
[2021-02-11] MEDS ORDERED: ROPIVACAINE 5MG/ML 20ML VIAL ONE (11:20)
[2021-02-11] MEDS ORDERED: fentaNYL (PF) 50 MCG/ML 5 ML AMP ONE (11:20)
[2021-02-11] MEDS ORDERED: BUTORPHANOL 1 MG/ML 1 ML VIAL IV PRN (11:30)
--- NOTE | 2021-02-11 11:36 | P.HPOB ---
History of Present Illness H&P Date: 02/11/21 Chief Complaint: 38+ weeks, early active labor The patient is a 25-year-old 5 para 3013 was admitted at 38 and one sevenths weeks as established by last menstrual period and confirmed by 8 week ultrasound. She is admitted in early active labor having made cervical change in triage and with regular and uncomfortable contractions. Her was complicated by an early diagnosis of chlamydia which was treated and tested for cure. She is a nonsmoker of both cigarettes and marijuana but otherwise has had no complications during the . On labor and delivery, all signs reassuring with a category 1 heart rate tracing. Group B strep status is negative Review of Systems Review of systems is confined to history of present illness. Past Medical History Past Medical History: No Reported History Additional Past Medical History / Comment(s): Pt denies any past medical hx. History of Any Multi-Drug Resistant Organisms: MRSA Date of last positivie culture/infection: 11/14/15 MDRO Source:: R groin Past Surgical History: No Surgical Hx Reported Past Anesthesia/Blood Transfusion Reactions: No Reported Reaction Smoking Status: Current every day smoker - Past Family History Father Family Medical History: No Reported History Additional Family Medical History / Comment(s): Father is healthy. Mother Family Medical History: No Reported History Additional Family Medical History / Comment(s): Mother is healthy. Medications and Allergies Home Medications Medication Instructions Recorded Confirmed Type Pnv No.95/Ferrous Fum/Folic AC 1 tab PO DAILY 01/31/21 02/11/21 History [ Multivitamin Tablet] Allergies Allergy/AdvReac Type Severity Reaction Status Date / Time sulfamethoxazole Allergy Rash/Hives Verified 02/11/21 09:33 [From Bactrim] trimethoprim [From Bactrim] Allergy Rash/Hives Verified 02/11/21 09:33 Exam Intake and Output 02/10/21 02/11/21 02/11/21 22:59 06:59 14:59 Other: Weight 66.678 kg In general, this is a well-developed, well-nourished white female in no acute distress. Her heart has a regular rhythm and rate without murmur. Her lungs are clear to auscultation bilaterally in all smith. Her abdomen is gravid, nondistended, has normal active bowel sounds, is soft, nontender, and without any palpable masses aside from the uterine fundus. Her extremities are without any cyanosis, clubbing, or edema and are nontender to palpation bilaterally. Digital cervical examination demonstrates her surgery approximately 4 cm dilated, approximately 80% effaced with the vertex in presentation at -1 station. Amniotic membranes are intact at this time and will be ruptured artif icially shortly. Results Result Diagrams: 02/11/21 11:00 Abnormal Lab Results - Last 24 Hours (Table) 02/11/21 Range/Units 11:00 WBC 16.2 H (3.8-10.6) k/uL Neutrophils # 13.6 H (1.3-7.7) k/uL Assessment and Plan (1) Active labor at term Current Visit: Yes Status: Acute Code(s): BAJ3661 - SNOMED Code(s): 49838625 Plan: The patient is admitted for active management of labor. She will have close maternal and surveillance and expectant management will be practiced. She is a good candidate for either IV or epidural analgesia, whichever she may choose. Following placement of her epidural, she will have artificial rupture of membranes carried out.
[2021-02-11 12:23] LABS: Amphetamine Screen,Urine Not Detected (NotDetected); Barbiturate Screen,Urine Not Detected (NotDetected); Benzodiazepines Screen,Urine Not Detected (NotDetected); Cocaine Screen,Urine Not Detected (NotDetected); Methadone Screen, Urine Not Detected (NotDetected); Opiate Screen,Urine Not Detected (NotDetected); Oxycodone Screen, Urine Not Detected (NotDetected); Phencyclidine Screen,Urine Not Detected (NotDetected); Tricyclic Antidepressant,Urine Not Detected (NotDetected); Urn Cannabinoid Scrn Detected (NotDetected)
[2021-02-11] MEDS ORDERED: ROPIVACAINE 100 MG, fentaNYL (PF). 200 MCG in SODIUM CHLORIDE 0.9% 76 ML EPIDURAL ONE (13:30)
[2021-02-11] MEDS ORDERED: SIMETHICONE 80 MG CHEWABLE PO PRN (14:32)
[2021-02-11] MEDS ORDERED: diphenhydrAMINE 50 MG/ML 1 ML VIAL IVP PRN ×2 (14:32)
[2021-02-11] MEDS ORDERED: diphenhydrAMINE 50 MG CAP PO PRN (14:32)
[2021-02-11] MEDS ORDERED: BENZOCAINE/MENTHOL SPRAY 1 GM/SPRAY AEROSOL TOPICAL PRN (14:32)
[2021-02-11] MEDS ORDERED: ACETAMINOPHEN TAB 325 MG TAB PO PRN (14:32)
[2021-02-11] MEDS ORDERED: ZOLPIDEM 5 MG TAB PO PRN (14:32)
[2021-02-11] MEDS ORDERED: LANOLIN CREAM 5 GM TUBE TOPICAL PRN (14:32)
[2021-02-11] MEDS ORDERED: HYDROcodone/APAP 5-325MG 1 EACH TAB PO PRN (14:32)
[2021-02-11] MEDS ORDERED: diphenhydrAMINE 25 MG CAP PO PRN (14:32)
[2021-02-11] MEDS ORDERED: HYDROCORTISONE 2.5% RECTAL CREAM 30 GM TUBE RECTAL PRN (14:32)
[2021-02-11] MEDS ORDERED: HYDROcodone/APAP 7.5-325MG 1 EACH TAB PO PRN (14:32)
--- NOTE | 2021-02-11 14:32 | P.PROBDLV ---
Vaginal Delivery Note - . Vaginal Delivery Note: The patient is a 25-year-old 5 para 3013 admitted at 38 and one sevenths weeks in early active labor. Her has been essentially uncomplicated and group B strep status is negative. On labor and delivery, all signs reassuring with a category 1 heart rate tracing. She had an upper catheter placed for analgesia and then underwent artificial rupture of membranes. She progressed very quickly through the remainder of the latent phase and and entire active phase of labor to complete and then delivered very quickly and in my absence a viable 6 lbs. 0 oz. baby boy with Apgars of 9 at 1 minute and 9 at 5 minutes in the occiput anterior position. I arrived shortly after delivery. The placenta was delivered spontaneously, intact, and grossly normal with a grossly normal three-vessel cord that was inserted just off of center of the placental disc. There were no lacerations the perineum, vagina, or cervix. Aside a blood loss for the case is approximately 100 mL. There were no complications aside from the rapid nature of the delivery before I could arrive. All sponge, instrument, and needle counts were correct. Both mother and are resting comfortably in recovery.
[2021-02-11] MEDS ORDERED: OXYTOCIN 30 UNITS/500 ML NS 30 UNIT in SALINE 1 500ML.BAG IV SCH (14:45)
[2021-02-11] MEDS: IBUPROFEN 600 MG TAB PO SCH ×2 (14:59→22:19)
[2021-02-11] MEDS: SENNOSIDES-DOCUSATE SODIUM 1 EACH TAB PO SCH (23:06)
[2021-02-12 06:15] LABS: Basophils # (A) 0.1 k/uL (0-0.2); Basophils % (A) 0 %; Eosinophils # (A) 0.2 k/uL (0-0.7); Eosinophils % (A) 1 %; HCT 35.6 % (34.0-46.0); HGB 12.2 gm/dL (11.4-16.0); Lymphocytes % (A) 13 %; MCH 31.7 pg (25.0-35.0); MCHC 34.3 g/dL (31.0-37.0); MCV 92.6 fL (80.0-100.0); Mean Platelet Volume 9.5; Monocytes % (A) 7 %; Neutrophils # (A) 11.4 k/uL (1.3-7.7); Neutrophils % (A) 78 %; Platelet Count 172 k/uL (150-450); RBC 3.85 m/uL (3.80-5.40); RDW 12.7 % (11.5-15.5); WBC 14.8 k/uL (3.8-10.6)
[2021-02-12] MEDS: SENNOSIDES-DOCUSATE SODIUM 1 EACH TAB PO SCH (07:50)
[2021-02-12] MEDS: IBUPROFEN 600 MG TAB PO SCH ×2 (07:50→16:58)
[2021-02-12 08:04] VITALS: RESP 18
[2021-02-12 11:51] VITALS: TEMP 97.9
--- NOTE | 2021-02-12 12:59 | P.DS ---
Providers Date of admission: 02/11/21 10:34 Expected date of discharge: 02/12/21 Attending physician: Estevan Luna Primary care physician: Stated None - Discharge Diagnosis(es) (1) Active labor at term Current Visit: Yes Status: Acute (2) Normal spontaneous vaginal delivery Current Visit: Yes Status: Acute Hospital Course: The patient is a 25-year-old 5 para 3013 admitted at 38 and one sevenths weeks by good dating parameters. She is admitted in early active labor having made cervical change. Her was complicated with chlamydia early in the . Treated and cured. She was a smoker above cigarettes and marijuana during the but otherwise had no complications. On labor and delivery, she underwent epidural catheter placement and then had artificial rupture of membranes for clear fluid. She made rapid progress through the latent and active phase of labor to complete and then pushed very quickly and actually in my absence to a normal spontaneous vaginal delivery of a viable 6 lbs. 0 oz. baby boy with Apgars of 9 at 1 minute and 9 at 5 minutes. I arrived approximately 30 seconds to 1 minute after delivery of the . Her course was unremarkable with vital signs being stable and her temperature was afebrile throughout. She was deemed stable for discharge on day #1 was discharged home to follow-up in the office in 6 weeks' time routinely. Discharge instructions included calling for any significantly increased bleeding or foul-smelling lochia, significantly increased fever or abdominal pain, perineal complaints, breast complaints, or anything else that concerned her. She was additionally instructed to have nothing in the vagina for at least 6 weeks time to include intercourse. She understood her instructions and agrees to follow up as noted above. Discharge medications included continued vitamins as she is currently opted to breast-feed. She was otherwise to use [id number] analgesic pain medications as needed. Maternal blood type is O+ and rubella status is immune. Procedures: #1. Epidural analgesia #2. Artificial rupture of membranes #3. Normal spontaneous vaginal delivery Patient Condition at Discharge: Stable Plan - Discharge Summary New Discharge Prescriptions: No Action Pnv No.95/Ferrous Fum/Folic AC [ Multivitamin Tablet] 1 tab PO DAILY Discharge Medication List Pnv No.95/Ferrous Fum/Folic AC [ Multivitamin Tablet] 1 tab PO DAILY 01/31/21 [History] Follow up Appointment(s)/Referral(s): Estevan Luna MD [STAFF PHYSICIAN] - 6 Weeks Discharge Disposition: HOME SELF-CARE
[2021-02-12 16:57] VITALS: BP 109/69; PULSE 51
--- NOTE | 2021-02-15 11:53 | P.MSEPDOC ---
Presenting Problems - Arrival Data Date of Arrival on Unit: 02/11/21 Time of Arrival on Unit: 10:43 Mode of Transport: Ambulatory - Complaint OB-Reason for Admission/Chief Complaint: Possible Onset of Labor Comment: contractions since 020 Medical History - Information : 5 Para: 3 Term: 3 : 0 Abortions: Spontaneous or Elective: 1 Number of Living Children: 3 - Gestational Age Gestational Age by RICHARD (wks/days): 38 Weeks and 1 Days - History Complications: Smoker, Hx. Substance Abuse Comment: daily marijuana use Review of Systems - Review of Systems Constitutional: No problems Breast: No problems ENT: No problems Cardiovascular: No problems Respiratory: No problems Gastrointestinal: No problems Genitourinary: No problems Musculoskeletal: No problems Neurological: No problems Skin: No problems Vital Signs - Temperature Temperature: 97.9 F Temperature Source: Oral - Pulse Right Brachial Pulse Rate: 51 Pulse Assessment Method: Automatic Cuff - Respirations Respiratory Rate: 18 Oxygen Delivery Method: Room Air O2 Sat by Pulse Oximetry: 99 - Blood Pressure Right Arm Blood Pressure: 109/69 Blood Pressure Mean: 82 Blood Pressure Source: Automatic Cuff Medical Screen Scoring - Cervical Exam Dilation (cm): 4 Effacement (%): 80 Station: -1 Membranes: Intact - Uterine Contractions Frequency From (mins): 3 Frequency To (mins): 5 Duration From (seconds): 80 Duration To (seconds): 90 Intensity: Strong Resting: Soft to palpation - Assessment - Baby A Baseline FHR: 135 Heart Rate - NICHD Category: Category II (Indeterminate) NST: Reactive Physician Notification - Physician Notified Physician Notified Date: 02/11/21 Physician Notified Time: 10:33 Physician: Estevan Luna Order Received: Yes - Notification Comment Comment: Admit for labor, may have epidural Maternal Triage Index - Maternal Triage Index Presenting for scheduled procedure w/no complaint: No - Stat/Priority 1 Stat Priority 1: No - Urgent/Priority 2 Urgent Priority 2: No - Prompt/Priority 3 Prompt Priority 3: Yes Criteria Met for Priority 3: signs of active labor >34 weeks Disposition - Disposition OB Disposition: Admit, LDRP Suite Discharge Date: 02/12/21 Discharge Time: 16:50 I agree with the RN Medical Screening Exam: Yes Case reviewed; plan agreed upon as documented in EMR&OBIX.: Yes Diagnosis: ENCOUNTER FOR FULL-TERM UNCOMPLICATED DELIVERY
== END 2021-02-12 16:50 | disposition home or self-care (01) | DRG 807 ==
LOC: FBPOP 09:15 → 4FBP 10:34
PROVIDERS: ADMIT Obstetrics & Gynecology; ATTEND Obstetrics & Gynecology
PROC: 10E0XZZ Delivery of Products of Conception, External Approach (ICD-10-PCS; principal; 2021-02-11)
DX: O99.334 Smoking (tobacco) complicating childbirth (principal); Z37.0 Single live birth; F17.200 Nicotine dependence, unspecified, uncomplicated
CPT/HCPCS: 59025; 80306; 85025; 86850; 86900; 86901; 99213

== ENCOUNTER → 2022-03-11 | Outpatient (CLI) | payer OTHER ==
[2022-03-11 22:27] LABS: Basophils # (A) 0.04 X 10*3/uL (0.00-0.10); Basophils % (A) 0.5 %; Eosinophils # (A) 0.09 X 10*3/uL (0.04-0.35); HCT 34.5 % (37.2-46.3); HGB 11.3 g/dL (12.0-15.0); Immature Grans, Automated 0.2 %; Lymphocytes # (A) 1.91 X 10*3/uL (0.90-5.00); Lymphocytes % (A) 21.6 %; MCHC 32.8 g/dL (32.0-37.0); MCV 85.4 fL (80.0-97.0); Mean Platelet Volume 12.3 fL (9.5-12.2); Monocytes # (A) 0.68 X 10*3/uL (0.20-1.00); Monocytes % (A) 7.7 %; NRBC Per 100 WBC 0 /100 WBCS (0.0-0.0); Neutrophils # (A) 6.12 X 10*3/uL (1.80-7.70); Platelet Count 222 X 10*3/uL (140-440); RBC 4.04 X 10*6/uL (4.10-5.20); RDW 13.7 % (11.5-14.5); WBC 8.86 X 10*3/uL (4.50-10.00)
== END | disposition home or self-care (01) ==
LOC: LABPAT 14:45
PROVIDERS: ATTEND Obstetrics & Gynecology Obstetrics
DX: Z01.812 Encounter for preprocedural laboratory examination (principal); O02.1 Missed abortion; Z3A.00 Weeks of gestation of pregnancy not specified
CPT/HCPCS: 85025; 86850; 86900; 86901

== ENCOUNTER 2022-03-12 23:37 | Observation (INO) | payer OTHER ==
[2022-03-12] MEDS ORDERED: SODIUM CHLORIDE 0.9% 1,000 ML IV ONE (23:44)
[2022-03-12] MEDS ORDERED: HYDROmorphone 0.5 MG/0.5 ML SYRINGE IVP STA (23:44)
--- NOTE | 2022-03-12 23:58 | ED ---
Abdominal Pain HPI - General Chief Complaint: OB/Uterine Contractions Stated Complaint: Miscarriage, 12 weeks Time Seen by Provider: 03/12/22 23:45 Source: patient, RN notes reviewed, old records reviewed Mode of arrival: ambulatory Limitations: no limitations - History of Present Illness Initial Comments: 26-year-old female presents to the emergency room with complaints of increased vaginal bleeding and cramping that started tonight. Patient states that she is scheduled for D&C in the morning after diagnosed with demise at 12 weeks while at her [employer] doctor's office by ultrasound. She states that she came to the emergency room tonight related to increased pain and persistent heavy bleeding MD Complaint: abdominal pain -: hour(s) (2) Location: diffuse Severity scale (1-10): 10 Quality: cramping Consistency: constant Improves With: nothing Associated Symptoms: other (vaginal bleeding) - Related Data Home Medications Medication Instructions Recorded Confirmed Pnv No.95/Ferrous Fum/Folic AC 1 tab PO DAILY 01/31/21 02/11/21 [ Multivitamin Tablet] Allergies Allergy/AdvReac Type Severity Reaction Status Date / Time sulfamethoxazole Allergy Rash/Hives Verified 03/12/22 23:40 [From Bactrim] trimethoprim [From Bactrim] Allergy Rash/Hives Verified 03/12/22 23:40 Review of Systems ROS Statement: Those systems with pertinent positive or pertinent negative responses have been documented in the HPI. ROS Other: All systems not noted in ROS Statement are negative. Past Medical History Past Medical History: No Reported History Additional Past Medical History / Comment(s): migraines, states ectopic with ruptured tube & surgery 12/16/21 ([place])., missed ab. History of Any Multi-Drug Resistant Organisms: MRSA Date of last positivie culture/infection: 11/14/15 MDRO Source:: R groin Past Surgical History: No Surgical Hx Reported Additional Past Surgical History / Comment(s): states ectopic with ruptured tube - surgery december 16, 2021 (surgery in [place]) Past Anesthesia/Blood Transfusion Reactions: No Reported Reaction Additional Past Anesthesia/Blood Transfusion Reaction / Comment(s): woke up during surgery and grabbed and scratched the anesthesiologist. Past Psychological History: No Psychological Hx Reported Smoking Status: Current every day smoker Past Alcohol Use History: None Reported Past Drug Use History: Marijuana - Past Family History Father Family Medical History: No Reported History Additional Family Medical History / Comment(s): . Mother Family Medical History: No Reported History Additional Family Medical History / Comment(s): . General Exam Limitations: no limitations General appearance: alert, in no apparent distress Head exam: Present: atraumatic Eye exam: Present: normal appearance. Absent: scleral icterus, conjunctival in jection, periorbital swelling, periorbital tenderness Neck exam: Present: normal inspection, full ROM. Absent: tenderness, meningismus Respiratory exam: Present: normal lung sounds bilaterally. Absent: respiratory distress, accessory muscle use Cardiovascular Exam: Present: regular rate GI/Abdominal exam: Present: soft, tenderness. Absent: distended, guarding, rebound, rigid External exam: Present: other (vaginal bleeding) Extremities exam: Present: normal capillary refill. Absent: pedal edema Neurological exam: Present: alert, oriented X3 Psychiatric exam: Present: normal affect, normal mood Skin exam: Present: warm, dry, normal color. Absent: cyanosis, diaphoretic, petechiae, pallor Course Vital Signs 03/12/22 03/13/22 03/13/22 23:38 00:20 00:47 Temperature 98.1 F Pulse Rate 80 85 77 Respiratory 16 22 20 Rate Blood Pressure 116/71 124/72 115/68 O2 Sat by Pulse 98 99 98 Oximetry 03/13/22 01:17 Temperature Pulse Rate 78 Respiratory 20 Rate Blood Pressure 122/77 O2 Sat by Pulse 97 Oximetry - Reevaluation(s) Reevaluation #1: 03/13/22 01:02 Patient states her cramping/pain is improving. Ultrasound was completed. She is nauseated and will be given Zofran. Time: 01:02 Medical Decision Making - Medical Decision Making Patient is . She had an ectopic back in November and resulted in removal of her right fallopian tube. Ultrasound shows irregular shaped gestational sac visualized in the lower uterine segment with evidence of demise. No evidence of ovarian torsion. Hemoglobin and hematocrit are stable. Patient was given multiple doses of pain medication and Zofran for nausea. She was given IV fluids. Patient's blood type is O+. Case discussed with Dr. Danielson Vital signs are stable. I did speak with Dr. Bui at 0200. Patient is scheduled to have a D&C at 7 AM. Patient will be admitted to the hospital, continue with IV fluids and pain medication. - Lab Data Result diagrams: 03/12/22 00:05 03/12/22 00:05 Lab Results 03/12/22 03/12/22 03/12/22 Range/Units 00:05 00:05 00:05 WBC 13.8 H (3.8-10.6) k/uL RBC 3.80 (3.80-5.40) m/uL Hgb 11.4 (11.4-16.0) gm/dL Hct 33.0 L (34.0-46.0) % MCV 87.0 (80.0-100.0) fL MCH 30.0 (25.0-35.0) pg MCHC 34.5 (31.0-37.0) g/dL RDW 14.1 (11.5-15.5) % Plt Count 227 (150-450) k/uL MPV 8.9 Neutrophils % 82 % Lymphocytes % 12 % Monocytes % 4 % Eosinophils % 1 % Basophils % 0 % Neutrophils # 11.4 H (1.3-7.7) k/uL Lymphocytes # 1.6 (1.0-4.8) k/uL Monocytes # 0.5 (0-1.0) k/uL Eosinophils # 0.1 (0-0.7) k/uL Basophils # 0.0 (0-0.2) k/uL PT 11.1 (9.0-12.0) sec INR 1.0 (<1.2) APTT 20.0 L (22.0-30.0) sec Sodium 138 (137-145) mmol/L Potassium 3.5 (3.5-5.1) mmol/L Chloride 104 (98-107) mmol/L Carbon Dioxide 22 (22-30) mmol/L Anion Gap 12 mmol/L BUN 13 (7-17) mg/dL Creatinine 0.43 L (0.52-1.04) mg/dL Est GFR (CKD-EPI)AfAm >90 (>60 ml/min/1.73 sqM) Est GFR (CKD-EPI)NonAf >90 (>60 ml/min/1.73 sqM) Glucose 123 H (74-99) mg/dL Calcium 9.2 (8.4-10.2) mg/dL HCG, Qual HCG, Quant mIU/mL Urine Color Urine Appearance (Clear) Urine RBC (0-5) /hpf Urine WBC (0-5) /hpf 03/13/22 03/13/22 03/13/22 Range/Units 00:05 00:05 01:55 WBC (3.8-10.6) k/uL RBC (3.80-5.40) m/uL Hgb (11.4-16.0) gm/dL Hct (34.0-46.0) % MCV (80.0-100.0) fL MCH (25.0-35.0) pg MCHC (31.0-37.0) g/dL RDW (11.5-15.5) % Plt Count (150-450) k/uL MPV Neutrophils % % Lymphocytes % % Monocytes % % Eosinophils % % Basophils % % Neutrophils # (1.3-7.7) k/uL Lymphocytes # (1.0-4.8) k/uL Monocytes # (0-1.0) k/uL Eosinophils # (0-0.7) k/uL Basophils # (0-0.2) k/uL PT (9.0-12.0) sec INR (<1.2) APTT (22.0-30.0) sec Sodium (137-145) mmol/L Potassium (3.5-5.1) mmol/L Chloride (98-107) mmol/L Carbon Dioxide (22-30) mmol/L Anion Gap mmol/L BUN (7-17) mg/dL Creatinine (0.52-1.04) mg/dL Est GFR (CKD-EPI)AfAm (>60 ml/min/1.73 sqM) Est GFR (CKD-EPI)NonAf (>60 ml/min/1.73 sqM) Glucose (74-99) mg/dL Calcium (8.4-10.2) mg/dL HCG, Qual Detected HCG, Quant 1896.2 mIU/mL Urine Color Dark Red Urine Appearance Bloody H (Clear) Urine RBC >182 H (0-5) /hpf Urine WBC 18 H (0-5) /hpf Disposition Clinical Impression: Vaginal bleeding in , demise before 20 weeks with retention of fetus Disposition: ADMITTED IP TO THIS [facility] Condition: Good Referrals: None,Stated [Primary Care Provider] - 1-2 days Decision Date: 03/13/22 Decision Time: 02:22
[2022-03-13 00:13] LABS: Basophils % (A) 0 %; Eosinophils # (A) 0.1 k/uL (0-0.7); Eosinophils % (A) 1 %; HGB 11.4 gm/dL (11.4-16.0); Lymphocytes # (A) 1.6 k/uL (1.0-4.8); Lymphocytes % (A) 12 %; MCHC 34.5 g/dL (31.0-37.0); Mean Platelet Volume 8.9; Monocytes # (A) 0.5 k/uL (0-1.0); Monocytes % (A) 4 %; Neutrophils # (A) 11.4 k/uL (1.3-7.7); Neutrophils % (A) 82 %; Platelet Count 227 k/uL (150-450); RDW 14.1 % (11.5-15.5); WBC 13.8 k/uL (3.8-10.6)
[2022-03-13] MEDS ORDERED: SODIUM CHLORIDE 0.9% 1,000 ML IV SCH (00:15)
[2022-03-13 00:29] LABS: Prothrombin Time 11.1 sec (9.0-12.0)
[2022-03-13] MEDS ORDERED: fentaNYL (PF) 50 MCG/ML 2 ML AMP IVP STA (00:30)
[2022-03-13 00:31] LABS: African American GFR (CKD) >90 (>60 ml/min/1.73 sqM); Anion Gap 12 mmol/L; Blood Urea Nitrogen 13 mg/dL (7-17); Calcium 9.2 mg/dL (8.4-10.2); Carbon Dioxide 22 mmol/L (22-30); Chloride 104 mmol/L (98-107); Glucose 123 mg/dL (74-99); Non-African American GFR(CKD) >90 (>60 ml/min/1.73 sqM); Potassium 3.5 mmol/L (3.5-5.1); Sodium 138 mmol/L (137-145)
[2022-03-13] MEDS ORDERED: ONDANSETRON 4 MG/2 ML VIAL IVP STA (01:01)
--- NOTE | 2022-03-13 01:13 | US ---
EXAMINATION TYPE: Transabdominal DATE OF EXAM: 03/13/2022 12:47 AM COMPARISON: NONE CLINICAL HISTORY: r/o ectopic. Heavy bleeding and severe pain x 1 day. Patient went to doctor's offic e and they confirmed a demise. D&C scheduled for tomorrow. . Ectopic back in November of 2021. EXAM PERFORMED: Transabdominal (TA) Pt refused transvaginal exam EXAM MEASUREMENTS: GESTATIONAL AGE / DATING Physician Established: (12 weeks/1 days) EDC: 09/23/22 Dates by LMP: LMP unknown Dates by First Scan: No previous this is first scan Dates by Current Scan for: (10 weeks/1 days) EDC: 10/08/22 MATERNAL ANATOMY Uterus: 11.5 x 7.0 x 6.8 cm Right Ovary: 2.2 x 1.7 x 1.4 cm Left Ovary: 3.0 x 2.2 x 1.9 cm. Cystic area seen measuring 2.7 x 2.6 x 2.4cm. Post CDS / Adnexa: WNL Presence of free fluid: No Presence of corpus luteal cyst: Presence of subchorionic bleed: No GESTATION / SURVEY CRL: 3.2cm (10 weeks/1 days) Heart Rate: 0 bpm Rhythm: No heart tone visualized IUP: Demise Date of LMP: Unknown Beta HcG (if available): Unknown Irregular shaped gestational sac visualized in lower uterine segment. Color flow Doppler images with spectral analysis show normal arterial and venous inflow and outflow. No evidence of ovarian torsion. IMPRESSION: There is evidence of demise. There is gestational sac is in the lower uterine segment. No evidence of ovarian torsion.
[2022-03-13 02:17] LABS: Appearance,Urine Bloody (Clear); Color,Urine Dark Red; RBC,Urine >182 /hpf (0-5); WBC,Urine 18 /hpf (0-5)
[2022-03-13] MEDS ORDERED: NALOXONE 0.4 MG/ML 1 ML VIAL IV PRN (02:20)
[2022-03-13] MEDS ORDERED: diphenhydrAMINE 50 MG/ML 1 ML VIAL IVP STA (02:22)
[2022-03-13] MEDS ORDERED: fentaNYL (PF) 50 MCG/ML 2 ML AMP IVP PRN (03:40)
[2022-03-13] MEDS ORDERED: IV FLUID CONTINUATION 1,000 ML IV ONE (07:45)
[2022-03-13] MEDS ORDERED: DEXAMETHASONE SOD PHOSPHATE 4 MG/ML 1 ML VIAL IVP ONE (07:55)
[2022-03-13] MEDS ORDERED: SCOPOLAMINE 1 MG/72 HR PATCH TRANSDERM ONE (07:56)
[2022-03-13] MEDS ORDERED: ONDANSETRON 4 MG/2 ML VIAL IVP ONE (07:56)
[2022-03-13] MEDS ORDERED: MIDAZOLAM 2 MG/2 ML VIAL IVP ONE (07:56)
[2022-03-13] MEDS ORDERED: LIDOCAINE 2% INJ 20 MG/ML (2 ML VIAL) ONE (08:31)
[2022-03-13] MEDS ORDERED: fentaNYL (PF) 50 MCG/ML 2 ML AMP ONE (08:31)
[2022-03-13] MEDS ORDERED: HYDROmorphone (PF) 1 MG/ML ONE (08:31)
[2022-03-13] MEDS ORDERED: PROPOFOL 10 MG/ML 20 ML VIAL IV ONE (08:31)
[2022-03-13] MEDS ORDERED: MIDAZOLAM 2 MG/2 ML VIAL ONE (08:31)
[2022-03-13] MEDS ORDERED: PHENYLEPHRINE-0.9% NACL SYG 1,000 MCG/10 ML SYRINGE ONE (08:31)
[2022-03-13] MEDS ORDERED: METHYLERGONOVINE 0.2 MG/ML 1 ML AMP ONE (08:31)
[2022-03-13] MEDS ORDERED: KETOROLAC 15 MG/ML 1 ML VIAL ONE (08:31)
--- NOTE | 2022-03-13 09:14 | P.OP ---
Date of Procedure: 03/13/22 Preoperative Diagnosis: Missed AB, 10 weeks Postoperative Diagnosis: Same Procedure(s) Performed: Suction dilation and curettage Anesthesia: MAC Surgeon: Reena Gaytan Estimated Blood Loss (ml): 25 IV fluids (ml): 300 Urine output (ml): 50 Pathology: other (Uterine contents) Condition: stable Disposition: PACU Indications for Procedure: 46 showed 6 para 4014 with ultrasound findings of demise at 10 weeks. Blood type is O+. Operative Findings: Moderate amount of products of conception were appreciated. Upon placing the weighted speculum the cervix is noted to be dilated to 4 cm with a large clot/products of conception appreciated. Uterus is noted to be severely anteverted. Description of Procedure: Patient was taken back to the operating suite where general anesthesia was obtained without difficulty by the anesthesia . She was prepped and draped in normal sterile fashion in the dorsal lithotomy position. A red rubber catheter was used to drain the bladder clear yellow urine. A weighted speculum was placed in the posterior vaginal vault, the anterior lip of cervix is visualized and grasped with single-tooth tenaculum. The cervix is noted to be dilated to 4 cm with a large amount of blood clot/products of conception appreciated. The 8 mm curved suction curette was placed into the cervix and this tissue was gently removed. The suction curet was then advanced to the fundus where a moderate amount of products of conception were removed from the uterus with multiple passes. On bimanual exam a small amount of products were appreciated as the uterus was noted to be severely anteverted. A sharp curette was performed to clear these products from the uterus. The uterus was noted to be firm on bimanual exam. Minimal bleeding was appreciated. The single-tooth tenaculum was taken off of the anterior lip of the cervix. Hemostasis was appreciated. All counts were correct 2 at the end of the procedure. Patient tolerated procedure well was taken the recovery room awake in stable condition.
--- NOTE | 2022-03-13 09:15 | P.HPOB ---
History of Present Illness H&P Date: 03/13/22 Chief Complaint: Missed AB This is a 26-year-old 6 para 4014 that presented for visit. Patient had an ultrasound done on that visit revealing a 10 week demise. Patient should have been 12 weeks by her last menstrual period. Patient had noted spotting and cramping prior to the office visit. We'll take noted to be O+. Review of Systems Constitutional: Denies chills, Denies fatigue, Denies fever Ears, nose, mouth and throat: Denies headache Cardiovascular: Denies leg edema Respiratory: Denies dyspnea Gastrointestinal: Denies constipation, Denies diarrhea, Denies nausea, Denies vomiting Genitourinary: Reports Past Medical History Past Medical History: No Reported History Additional Past Medical History / Comment(s): migraines, states ectopic with ruptured tube & surgery 12/16/21 ([place])., missed ab. History of Any Multi-Drug Resistant Organisms: MRSA Date of last positivie culture/infection: 11/14/15 MDRO Source:: R groin Past Surgical History: No Surgical Hx Reported Additional Past Surgical History / Comment(s): states ectopic with ruptured tube - surgery december 16, 2021 (surgery in [place]) Past Anesthesia/Blood Transfusion Reactions: No Reported Reaction Additional Past Anesthesia/Blood Transfusion Reaction / Comment(s): woke up during surgery and grabbed and scratched the anesthesiologist. Past Psychological History: No Psychological Hx Reported Smoking Status: Current every day smoker Past Alcohol Use History: None Reported Past Drug Use History: Marijuana - Past Family History Father Family Medical History: No Reported History Additional Family Medical History / Comment(s): . Mother Family Medical History: No Reported History Additional Family Medical History / Comment(s): . Medications and Allergies Home Medications Medication Instructions Recorded Confirmed Type No Known Home Medications 03/13/22 03/13/22 History Allergies Allergy/AdvReac Type Severity Reaction Status Date / Time sulfamethoxazole Allergy Rash/Hives Verified 03/13/22 07:49 [From Bactrim] trimethoprim [From Bactrim] Allergy Rash/Hives Verified 03/13/22 07:49 Exam Osteopathic Statement: *. No significant issues noted on an osteopathic structural exam other than those noted in the History and Physical/Consult. Vital Signs Temp Pulse Pulse Resp BP BP Pulse Ox 03/13/22 07:42 96.1 F L 87 16 117/57 100 03/13/22 06:47 98.8 F 84 14 98/65 95 03/13/22 01:17 78 20 122/77 97 03/13/22 00:47 77 20 115/68 98 03/13/22 00:20 85 22 124/72 99 03/12/22 23:38 98.1 F 80 16 116/71 98 Intake and Output 03/12/22 03/13/22 03/13/22 22:59 06:59 14:59 Other: Weight 55.338 kg Targeted physical exam is performed in this date and fur tailor a well-nourished female in no acute distress, breathing is nonlabored, heart has a regular rate and rhythm, abdomen is soft and nontender, vaginal exam is def erred. Results Result Diagrams: 03/12/22 00:05 03/12/22 00:05 Abnormal Lab Results - Last 24 Hours (Table) 03/12/22 03/12/22 03/12/22 Range/Units 00:05 00:05 00:05 WBC 13.8 H (3.8-10.6) k/uL Hct 33.0 L (34.0-46.0) % Neutrophils # 11.4 H (1.3-7.7) k/uL APTT 20.0 L (22.0-30.0) sec Creatinine 0.43 L (0.52-1.04) mg/dL Glucose 123 H (74-99) mg/dL Urine Appearance (Clear) Urine RBC (0-5) /hpf Urine WBC (0-5) /hpf 03/13/22 Range/Units 01:55 WBC (3.8-10.6) k/uL Hct (34.0-46.0) % Neutrophils # (1.3-7.7) k/uL APTT (22.0-30.0) sec Creatinine (0.52-1.04) mg/dL Glucose (74-99) mg/dL Urine Appearance Bloody H (Clear) Urine RBC >182 H (0-5) /hpf Urine WBC 18 H (0-5) /hpf Assessment and Plan (1) Missed Current Visit: Yes Status: Acute Code(s): O02.1 - MISSED SNOMED Code(s): 12510915 Plan: 26-year-old 6 para 4014 at 12 weeks' gestation with ultrasound findings ten-week demise. Patient is counseled on options. Patient elects suction dilation and curettage. Patient is counseled on surgery, questions are answered. Risks were reviewed in detail including bleeding transfusion infection injury to local structures such as uterine perforation, patient states understanding and wishes to proceed. We'll proceed with suction dilation and curettage. Blood type O+.
[2022-03-13 09:50] VITALS: RESP 14
[2022-03-13 11:01] VITALS: TEMP 96.2
[2022-03-13 11:36] VITALS: BP 116/54; PULSE 65
== END 2022-03-13 11:45 | disposition home or self-care (01) ==
LOC: EC 23:37 → 4FBP 03-13 06:55
PROVIDERS: ADMIT Obstetrics & Gynecology; ATTEND Obstetrics & Gynecology
DX: O02.1 Missed abortion (principal); G43.909 Migraine, unspecified, not intractable, without status migrainosus; Z86.14 Personal history of Methicillin resistant Staphylococcus aureus infection; O99.334 Smoking (tobacco) complicating childbirth; Z88.2 Allergy status to sulfonamides
CPT/HCPCS: 96361 ×2; 96374; 96375; 99285; 36415; 88305; 80048; 85025; 85610; 85730; 81001; 84703; 84702; 87086; 93975; 76801; 59820; J2250; J1200; J1100; J2210; J2405; J3010; J1170 ×2; J1885; J2370; J2704; J2001

== ENCOUNTER → 2022-08-12 | Outpatient (CLI) | payer OTHER ==
--- NOTE | 2022-08-12 08:58 | XR ---
EXAMINATION TYPE: XR chest 2V DATE OF EXAM: 08/12/2022 8:52 AM COMPARISON: Chest radiographs from 03/17/2017 TECHNIQUE: XR chest 2V Frontal and lateral views of the chest. CLINICAL INDICATION:Female, 26 years old with history of Z00.00 YEARLY PHYSICAL; FINDINGS: Lungs/Pleura: There is no evidence of pleural effusion, focal consolidation, or pneumothorax. Pulmonary vascularity: Unremarkable. Heart/mediastinum: Cardiomediastinal silhouette is unremarkable. Musculoskeletal: No acute osseous pathology. IMPRESSION: No acute cardiopulmonary disease/process.
[2022-08-12 15:44] LABS: Basophils # (A) 0.05 X 10*3/uL (0.00-0.10); Basophils % (A) 0.7 %; Eosinophils # (A) 0.31 X 10*3/uL (0.04-0.35); Eosinophils % (A) 4.4 %; HCT 35.3 % (37.2-46.3); HGB 9.9 g/dL (12.0-15.0); Immature Grans, Automated 0.3 %; Lymphocytes # (A) 1.19 X 10*3/uL (0.90-5.00); Lymphocytes % (A) 16.9 %; MCV 71.5 fL (80.0-97.0); Mean Platelet Volume 11.7 fL (9.5-12.2); Microcytosis (M) 2+; Monocytes # (A) 0.65 X 10*3/uL (0.20-1.00); Monocytes % (A) 9.2 %; NRBC Per 100 WBC 0 /100 WBCS (0.0-0.0); Neutrophils # (A) 4.82 X 10*3/uL (1.80-7.70); Neutrophils % (A) 68.5 %; Platelet Count 264 X 10*3/uL (140-440); RBC 4.94 X 10*6/uL (4.10-5.20); RDW 19.7 % (11.5-14.5); WBC 7.04 X 10*3/uL (4.50-10.00)
[2022-08-12 16:17] LABS: Erythrocyte Sedimentation Rate 34 mm/Hr (0-20)
[2022-08-12 16:20] LABS: C Reactive Protein <0.30 mg/dL (0.00-0.80); Chol/HDL Ratio 4.25 Ratio; Creatine Kinase 44 U/L (26-186)
[2022-08-12 16:25] LABS: Appearance,Urine Clear (Clear); Bilirubin,Urine Negative (Negative); Blood,Urine Negative (Negative); Color,Urine Yellow (Yellow); Ketones,Urine Trace mg/dL (Negative); Nitrite,Urine Negative (Negative); PH, Urine 5.5 (5.0-8.0); Specific Gravity,Urine 1.021 (1.001-1.030); Urobilinogen,Urine 0.2 (0.2,1.0)
[2022-08-12 16:28] LABS: % Iron Saturation 1.94 (12.00-45.00); ALT 9 U/L (8-44); AST 18 U/L (13-35); African American GFR (CKD) 145.8 (60.0-200.0); Albumin 4.3 g/dL (3.8-4.9); Albumin/Globulin Ratio 1.54 (1.60-3.17); Alkaline Phosphatase 67 U/L (41-126); BUN/Creat Ratio 16.33 Ratio (12.00-20.00); Blood Urea Nitrogen 9.8 mg/dL (9.0-27.0); Calcium 9.2 mg/dL (8.7-10.3); Carbon Dioxide 22.7 mmol/L (20.0-27.5); Chloride 104 mmol/L (96-109); Ferritin 8.7 ng/mL (10.0-291.0); Globulin 2.8 g/dL (1.6-3.3); Glucose 88 mg/dL (70-110); Iron 12 ug/dL (50-170); Non-African American GFR(CKD) 125.8 (60.0-200.0); Phosphorus 3.4 mg/dL (2.4-5.1); Potassium 4.7 mmol/L (3.5-5.5); Sodium 137 mmol/L (135-145); Total Bilirubin <0.15 mg/dL (0.30-1.20); Total Iron Binding Capacity 629 ug/dL (228-460); Total Protein 7.1 g/dL (6.2-8.2)
[2022-08-12 16:31] LABS: Bacteria,Urine Trace /HPF (None Seen)
== END | disposition home or self-care (01) ==
LOC: LABWHC1 07:58
PROVIDERS: ATTEND Internal Medicine
DX: Z00.00 Encounter for general adult medical examination without abnormal findings (principal); D64.9 Anemia, unspecified; E78.5 Hyperlipidemia, unspecified; E03.9 Hypothyroidism, unspecified; E55.9 Vitamin D deficiency, unspecified; N39.0 Urinary tract infection, site not specified
CPT/HCPCS: 36415; 71046; 80053; 80061; 81001; 82550; 82728; 83540; 83550; 83735; 84100; 84439; 84443; 85025; 85652; 86140; 87086

== ENCOUNTER 2023-03-05 09:12 | Emergency (ER) | payer OTHER ==
[2023-03-05 09:21] VITALS: RESP 16; TEMP 98
[2023-03-05] MEDS ORDERED: ACETAMINOPHEN TAB 325 MG TAB PO STA (09:31)
--- NOTE | 2023-03-05 09:41 | ED ---
Lower Extremity Injury HPI - General Chief Complaint: Recheck/Abnormal Lab/Rx Stated Complaint: rt ankle pain Time Seen by Provider: 03/05/23 09:23 Source: patient, RN notes reviewed Mode of arrival: wheelchair Limitations: no limitations - History of Present Illness Initial Comments: This is a 27-year-old female who presents to the emergency department for right leg pain. Patient slipped and fell one week ago, and sustained a right distal tib-fib fracture. She was initially seen at [facility]. She does not have an appointment with orthopedics until 03/17, and is unsure which offices this is at. She was given a prescription for [place], however she does not like how this makes her feel. She also has 4 kids at home, and has been m ore active than she should be. Additionally, she is also 4 months , limiting the medication options available to her. She is concerned about the long-term durability of the splint she was put in as well as her ongoing pain. Denies any fevers, chills, sore throat, cough, dyspnea, chest pain, palpitations, abdominal pain, nausea, vomiting, diarrhea, back pain, or headaches. MD Complaint: leg injury Onset/Timin -: week(s) - Related Data Home Medications Medication Instructions Recorded Confirmed No Known Home Medications 03/13/22 03/13/22 Allergies Allergy/AdvReac Type Severity Reaction Status Date / Time sulfamethoxazole Allergy Rash/Hives Verified 03/05/23 09:21 [From Bactrim] trimethoprim [From Bactrim] Allergy Rash/Hives Verified 03/05/23 09:21 Review of Systems ROS Statement: Those systems with pertinent positive or pertinent negative responses have been documented in the HPI. ROS Other: All systems not noted in ROS Statement are negative. Past Medical History Past Medical History: No Reported History Additional Past Medical History / Comment(s): migraines, states ectopic with ruptured tube & surgery 12/16/21 ([place])., missed ab. History of Any Multi-Drug Resistant Organisms: MRSA Date of last positivie culture/infection: 11/14/15 MDRO Source:: R groin Past Surgical History: No Surgical Hx Reported Additional Past Surgical History / Comment(s): states ectopic with ruptured tube - surgery december 16, 2021 (surgery in [place]) Past Anesthesia/Blood Transfusion Reactions: No Reported Reaction Additional Past Anesthesia/Blood Transfusion Reaction / Comment(s): woke up during surgery and grabbed and scratched the anesthesiologist. Past Psychological History: No Psychological Hx Reported Smoking Status: Vaper Past Alcohol Use History: None Reported Past Drug Use History: Marijuana - Past Family History Father Family Medical History: No Reported History Additional Family Medical History / Comment(s): . Mother Family Medical History: No Reported History Additional Family Medical History / Comment(s): . General Exam Limitations: no limitations General appearance: alert, in no apparent distress Head exam: Present: atraumatic, normocephalic, normal inspection Respiratory exam: Present: normal lung sounds bilaterally. Absent: respiratory distress, wheezes, rales, rhonchi, stridor Cardiovascular Exam: Present: regular rate, normal rhythm, normal heart sounds. Absent: systolic murmur, diastolic murmur, rubs, gallop, clicks Extremities exam: Present: other (Posterior stirrup splint to the right lower extremity in place. Full range of motion of all 5 toes. No swelling or erythema visible to the foot itself. 2+ dorsalis pedis pulses. Capillary refill less than 1 second.) Neurological exam: Present: alert, oriented X3, CN II-XII intact Psychiatric exam: Present: normal affect, normal mood Skin exam: Present: warm, dry, intact, normal color. Absent: rash Course Vital Signs 03/05/23 03/05/23 09:18 10:10 Temperature 98 F 98 F Pulse Rate 83 84 Respiratory 16 16 Rate Blood Pressure 102/54 107/68 O2 Sat by Pulse 99 99 Oximetry Medical Decision Making - Medical Decision Making This is a 27-year-old female who presents to the emergency department for right leg pain after a distal tib-fib fracture. Was pt. sent in by a medical professional or institution? @ -No Did you speak to anyone other than the patient for history? @ -No Did you review nursing and triage notes? @ -Yes, and I agree, it is accurate with regards to the patient's symptoms. Were old charts reviewed? @ -No Differential Diagnosis? @ -Not applicable EKG interpreted by me (3pts min.)? @ -Not obtained X-rays interpreted by me (1pt min.)? @ -Not obtained CT interpreted by me (1pt min.)? @ -Not obtained U/S interpreted by me (1pt. min.)? @ -Not obtained What testing was considered but not performed? (CT, X-rays, U/S, labs)? Why? @ -None What meds were considered but not given? Why? @ -None Did you discuss the management of the patient with other professionals? @ -No Did you reconcile home meds? @ -No Was smoking cessation discussed for >3mins.? @ -No Was critical care preformed (if so, how long)? @ -No Were there social determinants of health that impacted care today? How? (Homelessness, low income, unemployed, alcoholism, drug addiction, transportation, low edu. Level, literacy, decrease access to med. care, custodial, rehab)? @ -No Was there de-escalation of care discussed even if they declined? (Discuss DNR or withdrawal of care, Hospice)? @ -No What co-morbidities impacted this encounter? (DM, HTN, Smoking, COPD, CAD, Cancer, CVA, Hep., AIDS, mental health diagnosis, sleep apnea, morbid obesity)? @ - Was patient admitted / discharged? @ -Discharged. Tylenol administered in the emergency department. We called [facility], the orthopedic office on-call. We are able to get her appointment with them at 3 PM today with Ankita nurse practitioner. This was discussed with the patient, who is agreeable to the appointment. Advised that she can discuss further management of the fracture moving forward with orthopedics. Patient expresses understanding and was discharged home in stable condition. Undiagnosed new problem with uncertain prognosis? @ -None Drug Therapy requiring intensive monitoring for toxicity (Heparin, Nitro, Insulin, Cardizem)? @ -None Were any procedures done? @ -None Diagnosis/symptom? @ -Right tib/fib fracture Acute, or Chronic, or Acute on Chronic? @ -Acute Uncomplicated (without systemic symptoms) or Complicated (systemic symptoms)? @ -Uncomplicated Side effects of treatment? @ -None Exacerbation, Progression, or Severe Exacerbation] @ -Not applicable Poses a threat to life or bodily function? @ -Yes, this is limiting her ability to ambulate. Return precautions reviewed in depth, the patient is instructed to return to the emergency department with any new, worsening, or concerning symptoms. Patient verbalized understanding. This case was discussed in detail with the attending ED physician, Dr. Marmolejo. Presentation, findings, and treatment plan discussed in detail as well. - Radiology Data Radiology results: report reviewed, image reviewed Disposition Clinical Impression: Tibia/fibula fracture Disposition: HOME SELF-CARE Instructions (If sedation given, give patient instructions): Ankle Fracture (ED), Splint Care (ED) Additional Instructions: Return to the emergency department with any new, worsening, or concerning symptoms. Follow up with [facility] at 3pm today for your appointment. Please arrive early to fill out new patient paperwork. Continue to take Tylenol as needed for pain relief. Is patient prescribed a controlled substance at d/c from ED?: No Referrals: None,Stated [Primary Care Provider] - 1-2 days Ankita Brewster NPC [Nurse Practitioner] - 03/05/23 3:00 pm
[2023-03-05] MEDS ORDERED: ACET/COD 300 MG/30 MG STARTER PACK 6 TAB BTL PO STA (09:58)
[2023-03-05 10:13] VITALS: BP 107/68; PULSE 84
== END 2023-03-05 10:38 | disposition home or self-care (01) ==
LOC: EC 09:12
DX: S82.301A Unspecified fracture of lower end of right tibia, initial encounter for closed fracture (principal); S82.831A Other fracture of upper and lower end of right fibula, initial encounter for closed fracture; F17.290 Nicotine dependence, other tobacco product, uncomplicated; F12.90 Cannabis use, unspecified, uncomplicated; Z88.1 Allergy status to other antibiotic agents; Z88.2 Allergy status to sulfonamides; W01.0XXA Fall on same level from slipping, tripping and stumbling without subsequent striking against object, initial encounter
CPT/HCPCS: 99283

== ENCOUNTER 2023-08-13 23:36 | Inpatient (IN) | payer OTHER ==
[2023-08-14] MEDS ORDERED: OXYTOCIN 10 UNIT/ML 1 ML VIAL IM PRN (00:17)
[2023-08-14] MEDS ORDERED: miSOPROStoL 200 MCG TAB PO PRN (00:17)
[2023-08-14] MEDS ORDERED: TERBUTALINE 1 MG/ML VIAL SQ PRN (00:17)
[2023-08-14] MEDS ORDERED: METHYLERGONOVINE 0.2 MG/ML 1 ML AMP IM PRN (00:17)
[2023-08-14] MEDS ORDERED: TRANEXAMIC 1,000 MG/100ML-NACL 1,000 MG in EMPTY BAG 1 BAG IV PRN (00:17)
[2023-08-14] MEDS ORDERED: CARBOPROST TROMETHAMINE 250 MCG/ML 1 ML AMP IM PRN (00:17)
[2023-08-14] MEDS ORDERED: LIDOCAINE 0.5% (PF) 5 MG/ML (50 ML SDV) SQ PRN (00:17)
[2023-08-14] MEDS ORDERED: LACTATED RINGERS 1,000 ML IV SCH (00:30)
[2023-08-14 00:39] LABS: Basophils # (A) 0.1 k/uL (0-0.2); Basophils % (A) 0 %; Eosinophils # (A) 0.2 k/uL (0-0.7); Eosinophils % (A) 2 %; HCT 36.4 % (34.0-46.0); HGB 12.7 gm/dL (11.4-16.0); Lymphocytes # (A) 2.5 k/uL (1.0-4.8); Lymphocytes % (A) 18 %; MCH 30.9 pg (25.0-35.0); MCV 88.3 fL (80.0-100.0); Mean Platelet Volume 9.1; Monocytes # (A) 0.8 k/uL (0-1.0); Monocytes % (A) 6 %; Neutrophils # (A) 10.4 k/uL (1.3-7.7); Neutrophils % (A) 73 %; Platelet Count 236 k/uL (150-450); RBC 4.12 m/uL (3.80-5.40); RDW 13.8 % (11.5-15.5); WBC 14.3 k/uL (3.8-10.6)
[2023-08-14] MEDS ORDERED: HYDROCORTISONE 2.5% RECTAL CREAM 30 GM TUBE RECTAL PRN (01:32)
[2023-08-14] MEDS ORDERED: LANOLIN CREAM 5 GM TUBE TOPICAL PRN (01:32)
[2023-08-14] MEDS ORDERED: diphenhydrAMINE 25 MG CAP PO PRN (01:32)
[2023-08-14] MEDS ORDERED: diphenhydrAMINE 50 MG/ML 1 ML VIAL IVP PRN ×2 (01:32)
[2023-08-14] MEDS ORDERED: BENZOCAINE/MENTHOL SPRAY 1 GM/SPRAY AEROSOL TOPICAL PRN (01:32)
[2023-08-14] MEDS ORDERED: SIMETHICONE 80 MG CHEWABLE PO PRN (01:32)
[2023-08-14] MEDS ORDERED: ZOLPIDEM 5 MG TAB PO PRN (01:32)
[2023-08-14] MEDS ORDERED: diphenhydrAMINE 50 MG CAP PO PRN (01:32)
--- NOTE | 2023-08-14 01:36 | P.HPOB ---
History of Present Illness H&P Date: 08/14/23 Chief Complaint: Active labor Ms. Broussard is a 27 year old at 39 weeks and 0 days with EDC of 08/21/2023 by LMP consistent with 7 week US who presents to labor and delivery in active labor. has been complicated by tobacco use. The patient has been counseled on the risks of tobacco use in and was advised to quit. The has otherwise been uncomplicated. Obstetric history: 4 full term vaginal deliveries without complications Past Medical History Past Medical History: No Reported History Additional Past Medical History / Comment(s): migraines, states ectopic preg humera with ruptured tube & surgery 12/16/21 ([place])., missed ab. History of Any Multi-Drug Resistant Organisms: MRSA Date of last positivie culture/infection: 11/14/15 MDRO Source:: R groin Past Surgical History: No Surgical Hx Reported Additional Past Surgical History / Comment(s): states ectopic with ruptured tube - surgery december 16, 2021 (surgery in [place]) Past Anesthesia/Blood Transfusion Reactions: No Reported Reaction Additional Past Anesthesia/Blood Transfusion Reaction / Comment(s): woke up during surgery and grabbed and scratched the anesthesiologist. Smoking Status: Never smoker - Past Family History Father Family Medical History: No Reported History Additional Family Medical History / Comment(s): . Mother Family Medical History: No Reported History Additional Family Medical History / Comment(s): . Medications and Allergies Home Medications Medication Instructions Recorded Confirmed Type Vit No.179/Iron/Folic 1 each PO DAILY 08/13/23 08/13/23 History [ Tablet] Allergies Allergy/AdvReac Type Severity Reaction Status Date / Time sulfamethoxazole Allergy Rash/Hives Verified 08/13/23 23:52 [From Bactrim] trimethoprim [From Bactrim] Allergy Rash/Hives Verified 08/13/23 23:52 Exam Intake and Output 08/13/23 08/13/23 08/14/23 14:59 22:59 06:59 Other: Weight 68.039 kg Focused physical exam is performed. This is a healthy-appearing in no apparent distress. Breathing is non-labored. Abdomen is gravid and non-tender. Cervical exam is 7 cm, 90 effacement, -2 station. AROM is undertaken with meconium-stained fluid noted. Extremities non-tender and non-edematous. heart tones are Category I and tocometer is graphing contractions every 2-4 minutes. Results Result Diagrams: 08/14/23 00:22 Abnormal Lab Results - Last 24 Hours (Table) 08/14/23 Range/Units 00:22 WBC 14.3 H (3.8-10.6) k/uL Neutrophils # 10.4 H (1.3-7.7) k/uL Assessment and Plan Assessment: 27 year old at 39 weeks presenting in active labor Plan: Admit, clear liquid diet, epidural prn, continuous EFM and tocometer, anticipate vaginal delivery
--- NOTE | 2023-08-14 01:39 | P.PROBDLV ---
Vaginal Delivery Note - . Vaginal Delivery Note: DATE OF SERVICE: 08/14/2023 PROCEDURE: Normal Vaginal Delivery ATTENDING: Dr. Mira Prajapati MD ESTIMATED BLOOD LOSS: 300 mL FINDINGS: VMI, Apgars 9/9. Weight 6 pounds and 4 ounces (2835 grams) PROCEDURE: Ms. Broussard is a 27 year old at 39 weeks presenting to labor and delivery in spontaneous active labor. The has been complicated by tobacco use. For further details, please review the admitting H&P. AROM was undertaken at 0048 revealing meconium-stained fluid. The patient was completely dilated at 0058. She pushed once to deliver a viable male was delivered in occiput anterior position. The was placed on the mater nal abdomen and bulb suctioned. The infant was noted to be spontaneously crying. Cord was clamped and cut after a 30-second delay. The infant was handed off to the pediatric team. Placenta was delivered whole with gentle cord traction at 0105. Intramuscular oxytocin was declined by the patient when IV access was lost during stage 2 of labor. Uterine fundus was found to be firm and below the umbilicus upon fundal massage. Thorough examination of the cervix, vagina, periurethral area, and perineum revealed no lacerations. The patient is stable and allowed to begin the bonding process.
[2023-08-14] MEDS: IBUPROFEN 600 MG TAB PO PRN (02:01)
[2023-08-14] MEDS ORDERED: OXYTOCIN 30 UNITS/500 ML NS 30 UNIT in SALINE 1 500ML.BAG IV SCH (02:15)
[2023-08-14] MEDS: ACETAMINOPHEN TAB 325 MG TAB PO PRN ×2 (03:31→18:08)
[2023-08-14] MEDS: SENNOSIDES-DOCUSATE SODIUM 1 EACH TAB PO SCH ×2 (15:21→19:38)
[2023-08-15] MEDS: ACETAMINOPHEN TAB 325 MG TAB PO PRN ×2 (03:40→08:08)
[2023-08-15 08:02] LABS: Basophils # (A) 0.1 k/uL (0-0.2); Basophils % (A) 1 %; Eosinophils # (A) 0.2 k/uL (0-0.7); Eosinophils % (A) 2 %; HCT 35.1 % (34.0-46.0); Lymphocytes # (A) 1.9 k/uL (1.0-4.8); Lymphocytes % (A) 17 %; MCH 30.6 pg (25.0-35.0); MCHC 34.3 g/dL (31.0-37.0); MCV 89.3 fL (80.0-100.0); Mean Platelet Volume 9.3; Monocytes # (A) 0.6 k/uL (0-1.0); Monocytes % (A) 5 %; Neutrophils # (A) 8.7 k/uL (1.3-7.7); Neutrophils % (A) 74 %; Platelet Count 213 k/uL (150-450); RBC 3.93 m/uL (3.80-5.40); WBC 11.7 k/uL (3.8-10.6)
[2023-08-15] MEDS: SENNOSIDES-DOCUSATE SODIUM 1 EACH TAB PO SCH (08:08)
[2023-08-15 08:34] VITALS: BP 125/70; PULSE 65; RESP 16; TEMP 97.9
--- NOTE | 2023-08-15 09:27 | P.DS ---
Providers Date of admission: 08/14/23 00:00 Expected date of discharge: 08/15/23 Attending physician: Mira Prajapati MD Primary care physician: Stated None Hospital Course: Ms. Barker is a 27 year old now who is day #2 s/p normal spontaneous vaginal delivery. The patient is doing well this morning and had no acute events overnight. She has no complaints this morning. She reports minimal lochia, passing flatus, voiding without difficulty, ambulating, and eating/drinking without nausea or vomiting. Infant doing well at bedside, s/p circumcision. She denies chest pain, shortness of breathing, fevers, or chills overnight. She denies pain or swelling in the legs. restrictions are reviewed with the patient including pelvic rest for 6 weeks. The patient is encouraged to call the office if she experiences any heavy bleeding, foul- smelling discharge, breast complaints, or any if she has any other concerns. She will follow up in the office with Dr. Luna in 6 weeks for exam. She plans to take over the counter Motrin and Tylenol as needed for pain. All questions are answered. Assessment: 27 year old now PPD#2 s/p Patient Condition at Discharge: Good Plan - Discharge Summary Discharge Rx Participant: No New Discharge Prescriptions: No Action Vit No.179/Iron/Folic [ Tablet] 1 each PO DAILY Discharge Medication List Vit No.179/Iron/Folic [ Tablet] 1 each PO DAILY 08/13/23 [History] Follow up Appointment(s)/Referral(s): Estevan Luna MD [STAFF PHYSICIAN] - 6 Weeks Activity/Diet/Wound Care/Special Instructions: Instructions 1. Do not begin any exercise program for 3 weeks. 2. Do not resume sexual relations for 6 weeks or longer if uncomfortable. 3. You may take tub baths or showers at any time. 4. You may use tampons if desired after 6 weeks. 5. Keep any areas repaired with stitches clean and dry. 6. If you are not nursing, wear a good fitting, supportive bra during the day and limit fluid intake for at least 1 week to prevent breast engorgement. 7. Call the office, , within the next week to make appointment for your 6 week checkup if it has not already been made. 8. Report any of the following occurrences to the doctor promptly: a. Heavy, excessive bleeding b. Chills, fever c. Burning or frequency of urination d. Pain or redness and breasts if nursing e. Increasing pain or swelling of vulva (stitches). In addition to the above instructions, the following additional should be followed: 1. No heavy lifting or straining (exercising) until after 6 week checkup. 2. Keep abdominal incision clean and dry: You may wear a dressing if more comfortable. 3. Make office appointment for 2 weeks after delivery date. Discharge Disposition: HOME SELF-CARE
[2023-08-15] MEDS: IBUPROFEN 600 MG TAB PO PRN (12:43)
== END 2023-08-15 12:40 | disposition home or self-care (01) | DRG 560 ==
LOC: FBPOP 23:36 → 4FBP 08-14
PROVIDERS: ADMIT Obstetrics & Gynecology; ATTEND Obstetrics & Gynecology
PROC: 10E0XZZ Delivery of Products of Conception, External Approach (ICD-10-PCS; principal; 2023-08-14)
PROC: 10907ZC Drainage of Amniotic Fluid, Therapeutic from Products of Conception, Via Natural or Artificial Opening (ICD-10-PCS; 2023-08-14)
DX: O77.0 Labor and delivery complicated by meconium in amniotic fluid (principal); O99.334 Smoking (tobacco) complicating childbirth; F17.200 Nicotine dependence, unspecified, uncomplicated; Z3A.39 39 weeks gestation of pregnancy; Z37.0 Single live birth
CPT/HCPCS: 59025; 85025; 86850; 86900; 86901; 99213

== ENCOUNTER 2024-01-02 06:39 | Emergency (ER) | payer OTHER ==
[2024-01-02 07:46] VITALS: RESP 18
--- NOTE | 2024-01-02 07:46 | ED ---
General Adult HPI - General Chief complaint: Dental/Oral Stated complaint: dental pain Time Seen by Provider: 01/02/24 07:15 Source: patient, RN notes reviewed, old records reviewed Mode of arrival: ambulatory Limitations: no limitations - History of Present Illness Initial comments: This is a 28-year-old female who presents to the emergency department stating she has had some tooth pain on the upper right incisor and canine area she states there is no area that is fluctuant Patient starting to swell now and tooth pain is getting worse. Patient states she has had no fever or chills. Patient states has been trying to call her dentist she states she cannot see a dentist tomorrow. Patient denies any other symptoms at this time other than the tooth pain and swelling on the right side of her face. - Related Data Home Medications Medication Instructions Recorded Confirmed Vit No.179/Iron/Folic 1 each PO DAILY 08/13/23 08/13/23 [ Tablet] Previous Rx's Medication Instructions Recorded Amoxicillin 500 mg PO Q8H #30 capsule 01/02/24 Allergies Allergy/AdvReac Type Severity Reaction Status Date / Time sulfamethoxazole Allergy Rash/Hives Verified 01/02/24 07:08 [From Bactrim] trimethoprim [From Bactrim] Allergy Rash/Hives Verified 01/02/24 07:08 Review of Systems ROS Statement: Those systems with pertinent positive or pertinent negative responses have been documented in the HPI. ROS Other: All systems not noted in ROS Statement are negative. Past Medical History Past Medical History: No Reported History Additional Past Medical History / Comment(s): migraines History of Any Multi-Drug Resistant Organisms: MRSA Date of last positivie culture/infection: 11/14/15 MDRO Source:: R groin Past Surgical History: No Surgical Hx Reported Additional Past Surgical History / Comment(s): states ectopic with ruptured tube - surgery december 16, 2021 (surgery in [place]) Past Anesthesia/Blood Transfusion Reactions: No Reported Reaction Additional Past Anesthesia/Blood Transfusion Reaction / Comment(s): woke up during surgery and grabbed and scratched the anesthesiologist. Past Psychological History: No Psychological Hx Reported Smoking Status: Vaper Past Alcohol Use History: None Reported Past Drug Use History: Marijuana - Past Family History Father Family Medical History: No Reported History Additional Family Medical History / Comment(s): . Mother Family Medical History: No Reported History Additional Family Medical History / Comment(s): . General Exam - General Exam Comments Initial Comments: GENERAL Patient is well-developed and well-nourished. Patient is in mild distress. EYES Patient's pupils are equal and round. Extraocular motion is intact ENT Patient's right upper incisor and canine are tender to touch this cheek is swollen right abdominal and very tender to touch but there is no abscess or fluctuant area that I can see SKIN Unremarkable NEURO The patient is alert and oriented x 3 PYSCH Patient has normal interpersonal interactions. MUSCULOSKELETAL Patient moves all 4 extremities without problem Limitations: no limitations Course Vital Signs 01/02/24 07:06 Temperature 98.7 F Pulse Rate 63 Respiratory 18 Rate Blood Pressure 115/75 O2 Sat by Pulse 99 Oximetry Medical Decision Making - Medical Decision Making Was pt. sent in by a medical professional or institution (, PA, [employer], urgent care, hospital, or fdc...) When possible be specific @ -No Did you speak to anyone other than the patient for history (EMS, parent, family, police, friend...)? What history was obtained from this source @ -No Did you review nursing and triage notes (agree or disagree)? Why? @ -I reviewed and agree with nursing and triage notes Were old charts reviewed (outside hosp., previous admission, EMS record, old EKG, old radiological studies, urgent care reports/EKG's, fdc records)? Report findings @ -No old charts were reviewed Differential Diagnosis (chest pain, altered mental status, abdominal pain women, abdominal pain men, vaginal bleeding, weakness, fever, dyspnea, syncope, headache, dizziness, GI bleed, back pain, seizure, CVA, palpatations, mental health, musculoskeletal)? @ -Dental infection, fractured tooth, dental abscess, this is not an all- inclusive list EKG interpreted by me (3pts min.). @ -As above X-rays interpreted by me (1pt min.). @ -None done CT interpreted by me (1pt min.). @ -None done U/S interpreted by me (1pt. min.). @ -None done What testing was considered but not performed or refused? (CT, X-rays, U/S, labs)? Why? @ -None What meds were considered but not given or refused? Why? @ -None Did you discuss the management of the patient with other professionals (thelma warner i.e. , PA, [employer], lab, RT, psych nurse, social work lecturer, fishing worker, teacher, electronic intelligence officer, registered nurse hh case manager)? Give summary @ -No Was smoking cessation discussed for >3mins.? @ -No Was critical care preformed (if so, how long)? @ -No Were there social determinants of health that impacted care today? How? (Homelessness, low income, unemployed, alcoholism, drug addiction, transportation, low edu. Level, literacy, decrease access to med. care, half-way, rehab)? @ -No Was there de-escalation of care discussed even if they declined (Discuss DNR or withdrawal of care, Hospice)? DNR status @ -No What co-morbidities impacted this encounter? (DM, HTN, Smoking, COPD, CAD, Cancer, CVA, ARF, Chemo, Hep., AIDS, mental health diagnosis, sleep apnea, morbid obesity)? @ -None Was patient admitted / discharged? Hospital course, mention meds given and route, prescriptions, significant lab abnormalities, going to OR and other pertinent info. @ -Patient was given a half of Dilaudid for pain and an antibiotic dose of amoxicillin here before discharge patient will be sent home with more amoxicillin and some Tylenol with codeine Undiagnosed new problem with uncertain prognosis? @ -No Drug Therapy requiring intensive monitoring for toxicity (Heparin, Nitro, Insulin, Cardizem)? @ -No Were any procedures done? @ -No Diagnosis/symptom? @ -Dental infection Acute, or Chronic, or Acute on Chronic? @ -Acute Uncomplicated (without systemic symptoms) or Complicated (systemic symptoms)? @ -Uncomplicated Side effects of treatment? @ -No Exacerbation, Progression, or Severe Exacerbation? @ -No Poses a threat to life or bodily function? How? (Chest pain, [place], [place], pneumonia, PE, COPD, DKA, ARF, appy, cholecystitis, CVA, Diverticulitis, Homicidal, Suicidal, threat to staff... and all critical care pts) @ -No Disposition Clinical Impression: Dental infection Disposition: HOME SELF-CARE Condition: Good Instructions (If sedation given, give patient instructions): Toothache (ED) Prescriptions: Amoxicillin 500 mg PO Q8H #30 capsule Is patient prescribed a controlled substance at d/c from ED?: No Referrals: None,Stated [Primary Care Provider] - 1-2 days Time of Disposition: 07:45
[2024-01-02] MEDS: HYDROmorphone 0.5 MG/0.5 ML SYRINGE IM STA (08:15)
[2024-01-02] MEDS: AMOXICILLIN 875 MG TAB PO ONE (08:16)
[2024-01-02] MEDS: ACET/COD 300 MG/30 MG STARTER PACK 6 TAB BTL PO STA (08:16)
[2024-01-02 09:21] VITALS: BP 118/81; PULSE 64; TEMP 98.6
== END 2024-01-02 08:38 | disposition home or self-care (01) ==
LOC: EC 06:39
DX: K04.7 Periapical abscess without sinus (principal); F17.290 Nicotine dependence, other tobacco product, uncomplicated; Z88.1 Allergy status to other antibiotic agents; Z88.2 Allergy status to sulfonamides; Z88.8 Allergy status to other drugs, medicaments and biological substances
CPT/HCPCS: 99282; 96372; J1170

== ENCOUNTER → 2024-08-31 | Outpatient (CLI) | payer OTHER ==
--- NOTE | 2024-08-31 12:50 | XR ---
EXAMINATION TYPE: XR thoracic spine 3 views complete DATE OF EXAM: 08/31/2024 COMPARISON: NONE CLINICAL INDICATION: Female, 28 years old with history of Z00.00; pain in the thoracic spine for 2 mo nths FINDINGS: Small T12 ribs. All pedicles are visualized. Mild early degenerative disc disease suggested midthorac ic spine. Vertebral body heights are preserved and alignment is maintained. 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 No vertebral compression piero apse or malalignment. [facility], Workstation: [facility], 08/31/2024 12:47 PM
[2024-08-31 14:54] LABS: Basophils # (A) 0.02 X 10*3/uL (0.00-0.10); Basophils % (A) 0.4 %; Eosinophils % (A) 1.8 %; HCT 38.7 % (37.2-46.3); HGB 12.8 g/dL (12.0-15.0); Lymphocytes # (A) 1.74 X 10*3/uL (0.90-5.00); Lymphocytes % (A) 30.7 %; MCH 28.1 pg (27.0-32.0); MCHC 33.1 g/dL (32.0-37.0); MCV 85.1 FL (80.0-97.0); Mean Platelet Volume 12.2 FL (9.5-12.2); Monocytes # (A) 0.59 X 10*3/uL (0.20-1.00); Monocytes % (A) 10.4 %; NRBC Per 100 WBC 0 X 10*3/uL (0.00-0.01); Neutrophils % (A) 56.5 %; Platelet Count 243 X 10*3/uL (140-440); RBC 4.55 X 10*6/uL (4.10-5.20); RDW 14.9 % (11.5-14.5); WBC 5.66 X 10*3/uL (4.50-10.00)
[2024-08-31 15:15] LABS: Erythrocyte Sedimentation Rate 21 mm/Hr (0-20)
[2024-08-31 19:38] LABS: % Iron Saturation 10.21 (12.00-45.00); ALT 14 U/L (8-44); AST 18 U/L (13-35); Albumin 4.2 g/dL (3.8-4.9); Alkaline Phosphatase 63 U/L (41-126); Blood Urea Nitrogen 9.2 mg/dL (9.0-27.0); C Reactive Protein <0.30 mg/dL (0.00-0.80); Calcium 9.5 mg/dL (8.7-10.3); Carbon Dioxide 23.1 mmol/L (21.6-31.8); Chloride 107 mmol/L (96-109); Chol/HDL Ratio 4.66 Ratio; Creatine Kinase 62 U/L (26-186); Ferritin 8.7 ng/mL (10.0-291.0); Glucose 85 mg/dL (70-110); Iron 58 UG/DL (50-170); LDL Cholesterol,Calculated 173.3 mg/dL (0.0-131.0); Potassium 4.7 mmol/L (3.5-5.5); Sodium 140 mmol/L (135-145); T4, Free (Free Thyroxine) 1.19 ng/dL (0.80-1.80); Total Bilirubin <0.2 mg/dL (0.3-1.2); Total Iron Binding Capacity 568 UG/DL (228-460); Total Protein 7.2 g/dL (6.2-8.2)
[2024-08-31 20:28] LABS: Thyroid Peroxidase Antibodies 10.7 U/mL (0.0-33.0)
== END | disposition home or self-care (01) ==
LOC: LABWHC1 11:04
PROVIDERS: ATTEND Internal Medicine
DX: Z00.00 Encounter for general adult medical examination without abnormal findings (principal); D64.9 Anemia, unspecified; E87.8 Other disorders of electrolyte and fluid balance, not elsewhere classified; E78.5 Hyperlipidemia, unspecified; E05.90 Thyrotoxicosis, unspecified without thyrotoxic crisis or storm; E03.9 Hypothyroidism, unspecified; E55.9 Vitamin D deficiency, unspecified; M51.34 Other intervertebral disc degeneration, thoracic region
CPT/HCPCS: 36415; 72072; 80053; 80061; 82306; 82550; 82728; 83540; 83550; 83735; 84432; 84439; 84443; 84481; 85025; 85652; 86140; 86376